=== PATIENT | female | born 1975 | race Hispanic/Latino ===

== ENCOUNTER 2019-11-22 18:26 | Emergency (ER) | payer BC, OTHER ==
--- OUTSIDE RECORDS SUMMARY | 2019-11-22 18:27 | XMS REPORT | Continuity of Care Document ---
:1975 Author Organization [facility] t Address [address] [place] [address] Care Team Providers Name Role Phone Lab, [facility] Fam Pob I Attending Clinician Unavailable Problems This patient has no known problems. Allergies, Adverse Reactions, Alerts This patient has no known allergies or adverse reactions. Medications This patient has no known medications. Procedures This patient has no known procedures. Encounters Start End Encounter Admission Attending Care Care Encounter Source Date/Time Date/Time Type Type Clinicians Facility Department ID 2019-10-28 2019-10-28 Laboratory Lab, [facility] [id number] 14:07:16 14:27:16 Only Fam Pob I [facility] [id number] [place] [id number] Professio [phone] [address]al [address] Results This patient has no known results.
--- OUTSIDE RECORDS SUMMARY | 2019-11-22 18:27 | XMS REPORT | Summary of Care ---
:1975 Author Organization [facility] Address [address] [place] [address] Care Team Providers Name Role Phone Pcp, Patient Does Not Have A Primary Care Provider +1-000-00 0-0000 Reason for Visit Reason Comments LAB Fatigue Headache Encounter Details Date Type Department Care Team Description 10/28/2019 Laboratory Only [facility] Family Camilla Mariscal FNP [address] [address] Suspected Covid-19 [facility] Lab, Adc Fam Pob I Virus Infection [address] [place] [address] (Primary D x) [place] [address] Allergies Not on Filedocumented as of this encounter (statuses as of 10/28/2019) Medications Not on filedocumented as of this encounter (statuses as of 10/28/2019) Active Problems Not on filedocumented as of this encounter (statuses as of 10/28/2019) Social History Tobacco Use Types Packs/Day Years Used Date Never Assessed Sex Assigned at Date Recorded Not on file COVID-19 Exposure Response Date Recorded In the last month, have you been in contact with Yes 10/28/2019 2:13 PM CDT someone who was confirmed or suspected to have Coronavirus / COVID-19? documented as of this encounter Last Filed Vital Signs Not on filedocumented in this encounter Nursing Notes Jennifer Kim MA - 10/28/2019 2:00 PM CDTMaggsebastian Blevins is a 43 year old female here for COVID Screening with a Nasopharyngeal Swab All droplet and contact precautions taken with appropriate PPE worn while interacting with patient. ? Goggles ? N95 Mask ? Gloves ? Gown RR 18 Pulse Ox 98% Patient educated on plan of care for visit, swabbing technique, risks and benefits of test and length of time to receive results. Verbal consent obtained to perform test. CDC Fact Sheet for Patients nCoV Diagnostic Panel dated 05/24/2019 and Factsheet What to Do if Sick with COVID 19 05/04/19 provided. Patient swabbed in bilateral nostrils per appropriate nasopharyngeal technique, and patient tolerated well. Patient was discharged from the testing clinic in stable condition. JENNIFER KIM MA 10/28/2019 2:09 PM documented in this encounter Plan of Treatment Name Type Priority Associated Diagnoses Order S chedule COVID-19 (PCR MOLECULAR LAB Routine Suspected Covid-1 9 Virus Expected: 10/28/2019, TESTING) Infection Expires: 2020 Health Maintenance Due Date Last Done Comments Depression Screening 1985 DTaP,Tdap,and Td Vaccines (1 - 1992 Tdap) PAP SMEAR 1994 Breast Cancer Screening 2013 (MAMMOGRAM) INFLUENZA VACCINE (#1) 2019 Colorectal Cancer Screening 11/12/2023 PNEUMOCOCCAL 0-64 YEARS COMBINED Aged Out No longer eligible based on SERIES patient's age to complete this topic documented as of this encounter Results Not on filedocumented in this encounter Visit Diagnoses Diagnosis Suspected Covid-19 Virus Infection - Sailaja harinder documented in this encounter Additional Health Concerns Infection Onset Date Last Indicated Resolved Time COVID-19 Rule Out 10/28/2019 10/28/2019 documented as of this encounter Insurance Payer Benefit Plan Subscriber ID Effective Dates Phone Address Type / Group BCBS OF [facility] [id number] 2017-Robyn [phone] [address] P[place]/POS [place] t [id number] [place] [address] documented as of this encounter
--- OUTSIDE RECORDS SUMMARY | 2019-11-22 18:27 | XMS REPORT | Summary of Care ---
:1975 Author Organization [facility] Address [address] [place] [address] Care Team Providers Name Role Phone Pcp, Patient Does Not Have A Primary Care Provider +1-000-00 0-0000 Reason for Visit Reason Comments LAB Fatigue Headache Encounter Details Date Type Department Care Team Description 10/28/2019 Laboratory Only [facility] Family Camilla Mariscal FNP [address] [address] Suspected Covid-19 [facility] Lab, Adc Fam Pob I Virus Infection [address] [place] [address] (Primary D x) [place] [address] Allergies Not on Filedocumented as [...] Phone Address Type / Group BCBS OF [facility] [id number] 2017-Robyn [phone] [address] PPO/POS [place] [id number] [place] [address] documented as of this encounter
[2019-11-22 20:25] LABS: Absolute Lymphocytes (CBC) 2.1 K/uL (0.7-4.9); Hematocrit 34.8 % (36.0-45.0); Lymphocytes % 32.9 % (15.3-44.8); MPV 10.7 fL (7.6-11.3); RBC Red Blood Cell Count 3.95 M/uL (3.86-4.86)
[2019-11-22 20:38] LABS: Potassium 3.6 mmol/L (3.5-5.1)
--- NOTE | 2019-11-22 20:40 | ER ---
Nurse's Notes [facility] Name: Marissa Blevins Age: 44 yrs Sex: Female : 1975 Arrival Date: 11/22/2019 Time: 18:32 Bed 19 Private MD: Diagnosis: Irregular menstruation, unspecified;Leiomyoma of uterus, unspecified Presentation: 11/21 18:48 Chief complaint: Bright red vaginal bleeding, flow that is heavy with clots x 2 days. hb Reports leaking through super tampons < 1 hr all day today. Coronavirus screen: At this time, the client does not indicate any symptoms associated with coronavirus-19. Ebola Screen: No symptoms or risks identified at this time. Initial Sepsis Screen: Does the patient meet any 2 criteria? No. Patient's initial sepsis screen is negative. Does the patient have a suspected source of infection? No. Patient's initial sepsis screen is negative. Risk Assessment: Do you want to hurt yourself or someone else? Patient reports no desire to harm self or others. Onset of symptoms was November 21, 2019. 18:48 Method Of Arrival: Ambulatory hb 18:48 Acuity: ABUNDIO 3 hb Triage Assessment: 20:13 General: Appears in no apparent distress. comfortable, Behavior is calm, cooperative. ls4 Pain: Denies pain. Respiratory: No deficits noted. : Reports vaginal bleeding that is moderate flow. Derm: Skin is intact, Skin is dry, Skin is normal, Skin temperature is warm. 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 - Social history:: Smoking status: Patient denies any tobacco usage or history of. Screenin:13 Abuse screen: Denies threats or abuse. Denies injuries from another. Nutritional ls4 screening: No deficits noted. Tuberculosis screening: No symptoms or risk factors identified. Fall Risk None identified. Assessment: 21:15 Reassessment: Patient appears in no apparent distress at this time. Patient and/or ls4 family updated on plan of care and expected duration. Pain level reassessed. Patient is alert, oriented x 3, equal unlabored respirations, skin warm/dry/pink. Vital Signs: 18:48 BP 120 / 82; Pulse 77; Resp 16; Temp 97.7; Pulse Ox 100% on R/A; Weight 72.57 kg; hb Height 4 ft. 11 in. (149.86 cm); Pain 6/10; 21:15 BP 118 / 74; Pulse 72; Resp 16; Pulse Ox 100% on R/A; Pain 0/10; ls4 18:48 Body Mass Index 32.32 (72.57 kg, 149.86 cm) hb ED Course: 18:32 Patient arrived in ED. mr 18:38 Carie Colón FNP-C is [facility]. kb 18:38 Dean Kingston MD is Attending Physician. kb 18:50 Triage completed. hb 18:50 Arm band placed on. hb 19:42 Ultrasound completed. Patient tolerated well. sg3 19:42 Notified YEAST STACKER/PA carie with US prelim. sg3 20:03 Bita Bhardwaj, RN is Primary Nurse. ls4 20:14 No provider procedures requiring assistance completed. Initial lab(s) drawn, by nv, ls4 sent to lab. Inserted saline lock: 20 gauge in right antecubital area, using aseptic technique. Blood collected. Patient maintains SpO2 saturation greater than 95% on room air. 20:32 US Transvaginal Study (Probe) In Process Unspecified. EDAL 20:39 Dangelo Mcfadden MD is Referral Physician. kb 21:16 IV discontinued, intact, bleeding controlled, No redness/swelling at site. Pressure ls4 dressing applied. Administered Medications: No medications were administered Outcome: 20:39 Discharge ordered by . kb 21:16 Discharged to home ambulatory. ls4 21:16 Condition: stable 21:16 Discharge instructions given to patient, family, Instructed on discharge instructions, follow up and referral plans. Demonstrated understanding of instructions, follow-up care. 21:20 Patient left the ED. ls4 Signatures: Dispatcher [employer] EDAL Carie Colón FNP-C FNP-Med Arnie Nadine SawantKeturah RN RN CantuBlanca bowen sg3 Bita Bhardwaj, RN RN ls4 Corrections: (The following items were deleted from the chart) 21:23 21:19 Ultrasound completed. Patient tolerated well. sg3 sg3 21:23 21:19 Notified sg3 sg3
--- NOTE | 2019-11-22 20:40 | EDPHYS ---
Physician Documentation [facility] Name: Marissa Blevins Age: 44 yrs Sex: Female : 1975 Arrival Date: 11/22/2019 Time: 18:32 Bed 19 Private MD: ED Physician Dean Kingston HPI: 11/21 20:20 This 44 yrs old Female presents to ER via Ambulatory with complaints of kb Vaginal Bleeding. 20:20 The patient presents with vaginal bleeding that is heavy. Onset: The symptoms/episode kb began/occurred 2 day(s) ago, and became worse today. Modifying factors: The symptoms are alleviated by nothing, the symptoms are aggravated by nothing. Associated signs and symptoms: Pertinent positives: vaginal bleeding. Severity of symptoms: At their worst the symptoms were moderate, in the emergency department the symptoms are unchanged. The patient has not experienced similar symptoms in the past. The patient has not recently seen a physician. Pt reports she started her period 2 days ago and it has been very heavy, worse today. Pt denies history of heavy periods. States her periods have been very irregular lately and sometimes she has 2 per month. MEDICAL REVIEW SPECIALIST: 18:50 LMP 11/21/2019 hb Historical: - Allergies: 18:50 No Known Allergies; hb - Home Meds: 18:50 None [Active]; hb - PMHx: 18:50 None; hb - PSHx: 18:50 Cholecystectomy; hb - Immunization history:: Adult Immunizations up to date. - Social history:: Smoking status: Patient denies any tobacco usage or history of. ROS: 20:19 Constitutional: Negative for fever, chills, and weight loss, Cardiovascular: Negative kb for chest pain, palpitations, and edema, Respiratory: Negative for shortness of breath, cough, wheezing, and pleuritic chest pain, Abdomen/GI: Negative for abdominal pain, nausea, vomiting, diarrhea, and constipation, Back: Negative for injury and pain, MS/Extremity: Negative for injury and deformity, Skin: Negative for injury, rash, and discoloration, Neuro: Negative for headache, weakness, numbness, tingling, and seizure. 20:19 : Positive for vaginal bleeding. Exam: 20:19 Constitutional: This is a well developed, well nourished patient who is awake, alert, kb and in no acute distress. Head/Face: Normocephalic, atraumatic. Chest/axilla: Normal chest wall appearance and motion. Nontender with no deformity. No lesions are appreciated. Cardiovascular: Regular rate and rhythm with a normal S1 and S2. No gallops, murmurs, or rubs. Normal PMI, no JVD. No pulse deficits. Respiratory: Lungs have equal breath sounds bilaterally, clear to auscultation and percussion. No rales, rhonchi or wheezes noted. No increased work of breathing, no retractions or nasal flaring. Abdomen/GI: Soft, non-tender, with normal bowel sounds. No distension or tympany. No guarding or rebound. No evidence of tenderness throughout. Skin: Warm, dry with normal turgor. Normal color with no rashes, no lesions, and no evidence of cellulitis. MS/ Extremity: Pulses equal, no cyanosis. Neurovascular intact. Full, normal range of motion. Neuro: Awake and alert, GCS 15, oriented to person, place, time, and situation. Cranial nerves II-XII grossly intact. Motor strength 5/5 in all extremities. Sensory grossly intact. Cerebellar exam normal. Normal gait. Vital Signs: 18:48 BP 120 / 82; Pulse 77; Resp 16; Temp 97.7; Pulse Ox 100% on R/A; Weight 72.57 kg; hb Height 4 ft. 11 in. (149.86 cm); Pain 6/10; 21:15 BP 118 / 74; Pulse 72; Resp 16; Pulse Ox 100% on R/A; Pain 0/10; ls4 18:48 Body Mass Index 32.32 (72.57 kg, 149.86 cm) hb MDM: 18:53 Patient medically screened. [facility] 20:19 Data reviewed: vital signs, nurses notes. Data interpreted: Pulse oximetry: on room air kb is 100 %. Interpretation: normal. 20:38 Counseling: I had a detailed discussion with the patient and/or guardian regarding: the kb historical points, exam findings, and any diagnostic results supporting the discharge/admit diagnosis, lab results, radiology results, the need for outpatient follow up, an OB/Gyne specialist, to return to the emergency department if symptoms worsen or persist or if there are any questions or concerns that arise at home. 11/21 18:54 Order name: CBC with Diff; Complete Time: 20:37 kb 11/21 18:54 Order name: Basic Metabolic Panel; Complete Time: 20:38 kb 11/21 18:54 Order name: IV Start; Complete Time: 20:13 kb 11/21 18:59 Order name: US Transvaginal Study (Probe); Complete Time: 20:45 kb Administered Medications: No medications were administered Disposition: 11/22 10:56 Co-signature as Attending Physician, Dean Kingston MD I agree with the assessment and caridad plan of care. Disposition: 11/22/19 20:39 Discharged to Home. Impression: Irregular menstruation, unspecified, Leiomyoma of uterus, unspecified. - Condition is Stable. - Discharge Instructions: Uterine Fibroids, [id number], Abnormal Uterine Bleeding, [id number]. - Medication Reconciliation Form, Thank You Letter, Antibiotic Education, Prescription Opioid Use form. - Follow up: Emergency Department; When: As needed; Reason: Worsening of condition. Follow up: Private Physician; When: 2 - 3 days; Reason: Recheck today's complaints, Continuance of care, Re-evaluation by your physician. Follow up: Dangelo Mcfadden MD; Reason: Recheck today's complaints. Signatures: Dispatcher [employer] EDMS Carie Colón, LOG SKIDDER-C LOG SKIDDER-Dean Magaña MD MD cha Baxter, Heather, RN RN Bita Tsai RN RN ls4 Corrections: (The following items were deleted from the chart) 11/21 20:39 20:39 11/22/2019 20:39 Discharged to Home. Impression: Irregular menstruation, kb unspecified; Leiomyoma of uterus, unspecified. Condition is Stable. Forms are Medication Reconciliation Form, Thank You Letter, Antibiotic Education, Prescription Opioid Use. Follow up: Emergency Department; When: As needed; Reason: Worsening of condition. Follow up: Private Physician; When: 2 - 3 days; Reason: Recheck today's complaints, Continuance of care, Re-evaluation by your physician. kb 21:20 20:39 11/22/2019 20:39 Discharged to Home. Impression: Irregular menstruation, ls4 unspecified; Leiomyoma of uterus, unspecified. Condition is Stable. Discharge Instructions: Uterine Fibroids, [id number], Abnormal Uterine Bleeding, [id number]. Forms are Medication Reconciliation Form, Thank You Letter, Antibiotic Education, Prescription Opioid Use. Follow up: Emergency Department; When: As needed; Reason: Worsening of condition. Follow up: Private Physician; When: 2 - 3 days; Reason: Recheck today's complaints, Continuance of care, Re-evaluation by your physician. Follow up: Dangelo Mcfadden; Reason: Recheck today's complaints. kb
--- NOTE | 2019-11-22 20:42 | RAD REPORT ---
EXAM DESCRIPTION: US - Transvaginal Study Probe - 11/22/2019 8:32 pm CLINICAL HISTORY: heavy;Vaginal bleeding Pelvic pain. COMPARISON: No comparisons FINDINGS: The uterus appears mildly enlarged measuring 8.4 x 5.9 x 4.8 cm. In the fundal region ther e are 2 prominent fibroids which appear submucosal location, the larger fibroid measuring 3.0 x 2.4 c m. The endometrial stripe measures 6 mm, normal. Both ovaries are normal in size, shape and echotexture. The right ovary measures 2.5 x 2.1 cm. The left ovary measures 3.5 x 2.1 cm. No ovarian or parovarian lesions. No adnexal masses. Normal Doppler blood flow was demonstrated to both ovaries. No significant pelvic ascites. IMPRESSION: Several uterine fibroids are present in the fundal region, submucosal location as detail ed.
[2019-11-22 23:10] VITALS: TEMP 97.7; O2SAT 100
[2019-11-22 23:11] VITALS: BP 118/74
== END 2019-11-22 21:20 | disposition home or self-care (01) ==
LOC: ER 18:26
DX: N92.6 Irregular menstruation, unspecified (principal); D25.9 Leiomyoma of uterus, unspecified
CPT/HCPCS: 36415; 76830; 80048; 85025; 99284

== ENCOUNTER 2020-07-04 16:14 | Emergency (ER) | payer BC ==
--- OUTSIDE RECORDS SUMMARY | 2020-07-04 16:19 | XMS REPORT | Continuity of Care Document ---
:1975 Author Organization [facility] t Address [address] [place] [address] Care Team Providers Name Role Phone Lab, [facility] Fam Pob I Attending Clinician Unavailable Sonia RN, L Attending Clinician Unavailable Payers Payer Name Policy Type Policy Number Effective Date Expiration Date S ource Problems This patient has no known problems. Allergies, Adverse Reactions, Alerts Allergy Allergy Status Severity Reaction(s) Onset Inactive Treating Comm ents Source Name Type Date Date Clinician No Known DA Active U 2019-03 [facility]ie 0-26 Pearlan s 00:00: d 00 [facility] Medications This patient has no known medications. Procedures This patient has no known procedures. Encounters Start End Encounter Admission Attending Care Care Encounter Source Date/Time Date/Time Type Type Clinicians Facility Department ID 2020-03-06 2020-03-06 Laboratory Lab, [facility] [id number] 11:10:50 11:30:50 Only [facility]am [facility] [id number] Bryan [id number] Connor [phone] nal [address] 2019-10-29 2019-10-29 Letter DESTINEE Scott [id number] 00:00:00 00:00:00 (Out) Marni MILES [id number] [facility] [id number] [id number] 2019-10-28 2019-10-28 Laboratory Lab, [facility] [id number] 14:07:16 14:27:16 Only [facility] [id number] Bryan [id number] Connor [phone] nal 0[address] One Results Test Description Test Time Test Comments Results Result Comments Source SURG 2020-01-11 15:47:00 Test Item Value Reference Range Interpretation Comme nts SURG RUN DATE: (test 01/11/20 H FLA[facility]IO [facility] PAGE 1 RUN TIME: 154 code = Specimen Inquiry RUN USER: INTERFACE SURG) PATIENT: JULIET NGUYEN LOC: [place] U #: [id number] AGE/SX: 44/ F ROOM: RE01/07/20REG DR: Kathi Rodriguez : 71 BED: DIS: STATUS: [facility] TLOC: SPEC #: [id number] RECD: STATUS: BULMARO PURVIS #: [id number] RAMILA: 01/07/[address]: Kathi Rodriguez MD ENTERED: 01/07/20 SP TYPE: SURG OTHR DR: Arcelia P rimary or Family PhysicianORDERED: SURG PATH LVL 5 COPIES TO: No Primary or Family Physician Kathi Rodriguez MD [address] [place] [address] HISTOLOGY: TISSUE ID BLK PCS LATHA LEV PROCEDURE DISPOSITION ____ ___ ___ ___ UTERUS, NOS A 1 1 PROCEDURES: SURG PATH LVL 5 (01/07/20) TISSUES: A. UTERUS, NOS - UTERUS, CERVIX AND BILATERAL TUBES CLIN ICAL HISTORY DYSMENORRHEA - N94.6; LEIOMYOMA - D25.9; FREQUENT MENSES - N92.1 CPT CODES CPT CODE(S): 15813 , , , , , , FINAL D IAGNOSIS Uterus, cervix and bilateral fallopian tubes, hysterectomy and bilateral salpingectomy: CHRONIC CERVICITIS WITH NABOTHIAN CYST ADENOMYOSIS LEIOMYOMAS AND ADENOMYOMAS BILATERAL FALL OPIAN TUBES WITH PARATUBAL CYSTS GROSS DESCRIPTION Uterus, cervix and bilateral fallopian tube s. Received in formalin is a 175.9-gram hysterectomy and bilateral salpingectomy specimen inclu ding a uterus with attached cervix (10.5 x 7.5 x 5.5 cm), left fallopian tube with fimbriated end ( 6.5 x 1.0 x 0.5 cm), and right fallopian tube with fimbriated end (5.5 x CONTINUED ON NEXT PAGE * * RUN DATE: 01/11/20 H FLAVIO [facility] [place] - LAB PAGE 2 RUN TIME: 1546 Specimen Inquiry RUN USER: INTERFACE SPEC #: [facility]:[id number] PATIENT: JULIET NGUYEN #[id number] (Continued) GROSS DESCRIPTION (Continued) 1.0 x 0.5 cm). The serosal surface is beyer-brown, smooth and glistening. The cervix measures 3.6 x 3.3 x 4.0 cm (depth) with a linear os, 1.2 cm. The cervix contains cysts fill ed with translucent viscous fluid, the largest measures 0.7 cm in greatest dimension. The endometrial c avity measures 2.5 cm from cornu to cornu x 4.5 cm in length with a hemorrhagic endometrium, 0.3 cm. The myometrium is maximally 3.0 cm in thickness, and contains nodular areas. The le ft fallopian tube is slightly tortuous, is serially sectioned and has a patent lumen and is grossly unremarkable. There is a metallic coil embedded in the proximal end of the tube. The right fallopian tube is slightly tortuous, is serially sectioned and has a patent lumen and is grossly unremarkable except for two thin-walled paratubal cysts, 0.3 and 0.6 cm filled with translucent non- viscous fluid. There is a metallic coil embedded in the proximal end of the tube. ba/nr Repre sentative sections submitted as follows: A1 Anterior cervix A2 Posterior cervix A3-A4 Anterior endometrium/myometrium A5-A6 Posterior endometrium/myometrium A7- A9 Additional sections of myometrium A10 Serosa (posterior cul-de-sac) A 11 Entire fimbria - left fallopian tube A12 Cross-sections of left fallo pian tube A13 Entire fimbria - right fallopian tube and paratubal cyst A14 Cross-sec tions of right fallopian tube and paratubal cyst Grossing performed at [facility], [address] [place] [address], [address], [place] [address]. Trailer Technician: Lion Hurley M.D. MICROSCOP IC DESCRIPTION Uterus, cervix and bilateral fallopian tubes. Sections demonstrate squamous ectoc ervix and glandular endocervix with mild chronic cervicitis and nabothian cysts. Endometrium demonstr ates secretory phase endometrium. The myometrium demonstrates areas of endometrial glands and bro a involving the smooth muscle. The myometrium demonstrates spindle cell nodules and occasional nodul es with endometrial glands and stroma. No malignant features are seen. The serosal surface demons trates no evidence of involvement by endometrial glands and stroma. Sections of the fallopian tu bes demonstrate fimbriated end and associated fallopian tube. Occasional paratubal cysts are identified. Signed SIGNATURE ON FILE Otis Caro 01/11/20 1547 END OF REPORT - CHEST 1 [id number] 13:47:00 [facility] 1975 Sex: F Name: JULIET NGUYEN [facility] : 1975 Age/S: 44 / F [address] Unit #: [id number] Loc: [place] [address] Phys: Kathi Rodriguez MD Acct: [id number] Dis Date: Status: PRE SDC PHONE #: [phone] Exam Date: 01/04/2020 1202 FAX #: Reason: PREOP EXAMS: CPT: [id number] XR CHEST 1 V 20507 Fluoro Time: DAP (Gy m2): Air Kerma (mGy): EXAMINATION: - XR CHEST 1 V. LOCATION: S17. HISTORY: PREOP, dysmenorrhea, leiomyoma, frequent menstruation. COMPARISON: None. FINDINGS: Examination is limited due to portable technique and low lung volumes. Cardiac silhouette/Mediastinal contour: Within normal limits. Lungs: No focal consolidation. No large pleural effusion. Osseous Structures: No acute osseous abnormalities. Additional Findings: Postoperative clips project over right upper abdomen. IMPRESSION: No focal consolidation. at 1347 Reported and signed by: Mariaelena Wharton M.D. CC: Kathi Rodriguez MD PAGE 1 Signed Report Name: JULIET NGUYEN [facility] : 1975 Age/S: 44 / F [id number] Unit #: [id number] Loc: [place] [address] Phys: Kathi Rodriguez MD Acct: [id number] Dis Date: Status: P RE [facility] PHONE #: [phone] Exam Date: 01/04/2020 120 FAX #: Reason: PREOP EXAMS: CPT: [id number] XR CHEST 1 V 69299 Fluoro Time: DAP (Gy m2): Air Kerma (mGy): <Continued> Technologist: Regina Jaramillo, RT(R)(MR) Trnscb Date/Time: 01/04/2020 (2959) [email or web address] Orig Print D/T: S: 01/04/2020 (7160) PAGE 2 Signed ReportCOVID 19 INHOUSE [id number] 13:02:00 Test Item Value Reference Range Interpretation Comments COVID 19 INHOUSE AG NEGATIVE Negative Per manu facturer, (test code = negative result s should [id number]) be treated aspr esumptive and, if inconsi stent with clinical signs andsymptoms or necessary for patient man agement, should betested with an alternative mol ecular assay. Negative resultsdo not preclude SA RS-CoV-2 infection and s hould not be usedas the s ole basis for patient man agement decisions. Neg ative results should be considered in t he context of apatient's r ecent exposures, hist ory, presence of cli nicalsigns and symptoms co nsistent with COVID-19. URINALYSIS [id number] 12:15:00 Test Item Value Reference Range Interpretation Comments UA GLUCOSE DIPSTICK (test NEGATIVE mg/dL NEG code = DGLUU) UA BILIRUBIN DIPSTICK (test NEGATIVE mg/dL NEG code = BILU) UA KETONE DIPSTICK (test NEGATIVE mg/dL NEG code = KETU) UA SPECIFIC GRAVITY (test 1.010 SG 1.005-1.030 code = SGU) UA BLOOD DIPSTICK (test NEGATIVE mg/DL NEG code = SAPPHIRE) UA PH DIPSTICK (test code = <=5.0 pH UNITS 5.0-7.0 ABELARDO) UA PROTEIN DIPSTICK (test NEGATIVE mg/dL NEG code = PROU) UA UROBILINIOGEN DIPSTICK 0.2 mg/dL <2.0 (test code = URO) UA NITRITE DIPSTICK (test NEGATIVE SCREEN NEG code = DAYA) UA LEUKOCYTE ESTERASE NEGATIVE Leuk/mcL NEGATIVE DIPSTICK (test code = LEUU) Urine Specimen Type: Clean CatchUR HCG [id number] 12:15:00 Test Item Value Reference Range Interpretation Comments UR HCG QUAL (test code = HCGQLU) NEGATIVE Urine Specimen Type: Clean CatchURINALYSIS [id number] 12:15:00 Test Item Value Reference Range Interpretation Comments UA GLUCOSE DIPSTICK (test NEGATIVE mg/dL NEG code = DGLUU) UA BILIRUBIN DIPSTICK (test NEGATIVE mg/dL NEG code = BILU) UA KETONE DIPSTICK (test NEGATIVE mg/dL NEG code = KETU) UA SPECIFIC GRAVITY (test 1.010 SG 1.005-1.030 code = SGU) UA BLOOD DIPSTICK (test NEGATIVE mg/DL NEG code = SAPPHIRE) UA PH DIPSTICK (test code = <=5.0 pH UNITS 5.0-7.0 ABELARDO) UA PROTEIN DIPSTICK (test NEGATIVE mg/dL NEG code = PROU) UA UROBILINIOGEN DIPSTICK 0.2 mg/dL <2.0 (test code = URO) UA NITRITE DIPSTICK (test NEGATIVE SCREEN NEG code = DAYA) UA LEUKOCYTE ESTERASE NEGATIVE Leuk/mcL NEGATIVE DIPSTICK (test code = LEUU) Urine Specimen Type: Clean CatchUR HCG [id number] 12:15:00 Test Item Value Reference Range Interpretation Comments UR HCG QUAL (test code = HCGQLU) NEGATIVE NEGATIVE Urine Specimen Type: Clean CatchCBC W/AUTO [id number] 12:11:00 Test Item Value Reference Range Interpretation Comments WHITE BLOOD CELL (test code = 6.9 K/mm3 3.5-11.0 N WBC) RED BLOOD CELL (test code = 4.37 M/mm3 4.70-6.10 L RBC) HEMOGLOBIN (test code = HGB) 12.5 G/DL 10.4-14.9 N HEMATOCRIT (test code = HCT) 39.2 % 31.5-44.1 N MEAN CELL VOLUME (test code = 89.7 Fl 84.5-98.6 N MCV) MEAN CELL HGB (test code = MCH) 28.6 pg 27.0-34.2 N MEAN CELL HGB CONCETRATION 31.9 G/DL 31.5-34.0 N (test code = MCHC) RED CELL DISTRIBUTION WIDTH 13.9 SD 11.5-14.5 N (test code = RDW) PLATELET COUNT (test code = 274 K/mm3 150-450 N PLT) MEAN PLATELET VOLUME (test code 11.50 fL 7.0-10.5 H = MPV) NEUTROPHIL % (test code = NT%) 65.7 % 40-76 N IMMATURE GRANULOCYTE % (test 0.3 % 0.0-5.0 N code = IG%) LYMPHOCYTE % (test code = LY%) 25.5 % 20.5-51.1 N MONOCYTE % (test code = MO%) 6.1 % 1.7-9.3 N EOSINOPHIL % (test code = EO%) 1.7 % 0.0-6.0 N BASOPHIL % (test code = BA%) 0.7 % 0.0-2.0 N NUCLEATED RBC % (test code = 0.0 /100WBC% 0.0-1.0 N NRBC%) NEUTROPHIL # (test code = NT#) 4.5 K/mm3 1.8-7.6 N IMMATURE GRANULOCYTE # (test 0.02 x10 3/uL 0.00-0.03 N code = IG#) LYMPHOCYTE # (test code = LY#) 1.8 K/mm3 0.6-3.2 N MONOCYTE # (test code = MO#) 0.4 K/mm3 0.3-1.1 N EOSINOPHIL # (test code = EO#) 0.1 K/mm3 0.0-0.4 N BASOPHIL # (test code = BA#) 0.1 K/mm3 0.0-0.1 N NUCLEATED RBC # (test code = 0.0 K/mm3 0.0-0.1 N NRBC#) MANUAL DIFF REQUIRED (test code NO DIFF/SCN CRITERIA = MDIFF)
--- NOTE | 2020-07-04 20:05 | ER ---
Nurse's Notes [facility] Name: Marissa Blevins Age: 44 yrs Sex: Female : 1975 Arrival Date: 07/04/2020 Time: 16:15 Bed 3 Private MD: Diagnosis: Headache;Coronavirus infection, unspecified Presentation: 07/04 16:35 Chief complaint: Patient states: Headache with nausea since Saturday. Tested positive ll1 for covid Saturday. Both of her daughters also have covid. Coronavirus screen: Client denies travel out of the [place] in the last 14 days. chills, congestion, diarrhea, difficulty breathing, fatigue, headache, muscle pain, nausea, shaking with chills, shortness of breath, loss of taste or smell, Client presents with at least one sign or symptom that may indicate coronavirus-19. Standard/surgical mask placed on the client. Ebola Screen: Patient denies travel to an Ebola-affected area in the 21 days before illness onset. Initial Sepsis Screen: Does the patient meet any 2 criteria? No. Patient's initial sepsis screen is negative. Does the patient have a suspected source of infection? Yes: Other: covid. Risk Assessment: Do you want to hurt yourself or someone else? Patient reports no desire to harm self or others. Onset of symptoms was June 28, 2020. 16:35 Method Of Arrival: Ambulatory ll1 16:35 Acuity: ABUNDIO 3 ll1 Historical: - Allergies: 16:38 No Known Allergies; ll1 - PMHx: 16:38 None; ll1 - PSHx: 16:38 Cholecystectomy; Hysterectomy; ll1 - Immunization history:: Client reports having NOT received the Covid vaccine. Flu vaccine is up to date. - Social history:: Smoking status: Patient denies any tobacco usage or history of. - Family history:: not pertinent. - Hospitalizations: : No recent hospitalization is reported. Screenin:03 Abuse screen: Denies threats or abuse. Nutritional screening: No deficits noted. ea Tuberculosis screening: No symptoms or risk factors identified. Fall Risk None identified. Assessment: 20:01 General: Appears in no apparent distress. Behavior is calm, cooperative, appropriate ea for age. Pain: Denies pain. Neuro: Level of Consciousness is awake, alert, obeys commands, Oriented to person, place, time, situation. Cardiovascular: Patient's skin is warm and dry. Respiratory: Airway is patent Respiratory effort is even, unlabored, Respiratory pattern is regular, symmetrical. Derm: Skin is pink, warm \T\ dry. 20:24 Reassessment: Patient and/or family updated on plan of care and expected duration. Pain ea level reassessed. Patient is alert, oriented x 3, equal unlabored respirations, skin warm/dry/pink. Discharge instruction given to patient verbalized the understanding of instruction. Pt left ED ambulatory tolerating well. Vital Signs: 16:35 BP 125 / 96; Pulse 84; Resp 17; Temp 98.7; Pulse Ox 98% on R/A; Weight 67.59 kg; Height ll1 4 ft. 11 in. (149.86 cm); Pain 8/10; 20:15 BP 120 / 80; Pulse 80; Resp 18; Pulse Ox 98% ; ea 16:35 Body Mass Index 30.09 (67.59 kg, 149.86 cm) ll1 [place] Coma Score: 20:03 Eye Response: spontaneous(4). Verbal Response: oriented(5). Motor Response: obeys rn commands(6). Total: 15. ED Course: 16:15 Patient arrived in ED. am2 16:37 Triage completed. ll1 16:38 Arm band placed on. ll1 19:44 Samir Shi, SILVIA is Primary Nurse. rv 19:44 Kit Anderson MD is Attending Physician. rn 20:03 Patient has correct armband on for positive identification. Bed in low position. Call ea light in reach. Side rails up X2. 20:25 No provider procedures requiring assistance completed. Patient did not have IV access ea during this emergency room visit. Administered Medications: 20:01 Drug: Zofran (Ondansetron) 4 mg Route: PO; ea Outcome: 20:05 Discharge ordered by . rn 20:25 Discharged to home ambulatory, with family. ea 20:25 Condition: stable 20:25 Discharge instructions given to patient, Instructed on discharge instructions, follow up and referral plans. medication usage, Demonstrated understanding of instructions, follow-up care, medications, Prescriptions given X 1. 20:26 Patient left the ED. ea Signatures: Kit Anderson MD MD rn Moreno, Amanda am2 Elaine Thorne RN RN Samir Ortiz, RN RN rv Donavon, Lul, RN RN ll1
--- NOTE | 2020-07-04 20:05 | EDPHYS ---
Physician Documentation [facility] Name: Marissa Blevins Age: 44 yrs Sex: Female : 1975 Arrival Date: 07/04/2020 Time: 16:15 Bed 3 Private MD: ED Physician Kit Anderson HPI: 07/04 19:53 This 44 yrs old Female presents to ER via Ambulatory with complaints of rn Headache. 19:53 The patient complains of pain to the top of head. The patient describes the headache as rn aching. Onset: The symptoms/episode began/occurred 6 day(s) ago. Associated signs and symptoms: Pertinent positives: nausea, Pertinent negatives: altered mental status, dizziness, fever, rash, vision changes, vision loss, vomiting, vertigo. Severity of symptoms: At its worst the pain was mild, in the emergency department the pain is unchanged. Headache History: Denies prior headaches. The symptoms are alleviated by nothing. the symptoms are aggravated by nothing. The patient has not experienced similar symptoms in the past. The patient has been recently seen by a physician:. Reports started with headache 6 days ago, COVID +, no respiratory issues, + decreased appetite and generalized weakness. Reports 3 other family members with COVID, 1 is here as patient, this patient came because headache continues. NO focal neuro complaint. Was not vaccinated. . Historical: - Allergies: 16:38 No Known Allergies; ll1 - PMHx: 16:38 None; ll1 - PSHx: 16:38 Cholecystectomy; Hysterectomy; ll1 - Immunization history:: Client reports having NOT received the Covid vaccine. Flu vaccine is up to date. - Social history:: Smoking status: Patient denies any tobacco usage or history of. - Family history:: not pertinent. - Hospitalizations: : No recent hospitalization is reported. ROS: 19:53 Constitutional: Negative for fever, chills, + weight loss Eyes: Negative for injury, rn pain, redness, and discharge, ENT: Negative for injury, pain, and discharge, Neck: Negative for injury, pain, and swelling, Cardiovascular: Negative for chest pain, palpitations, and edema, Respiratory: Negative for shortness of breath, cough, wheezing, and pleuritic chest pain, Abdomen/GI: Negative for abdominal pain, vomiting, diarrhea, and constipation, Back: Negative for injury and pain, : Negative for injury, bleeding, discharge, and swelling, MS/Extremity: Negative for injury and deformity, Skin: Negative for injury, rash, and discoloration, Neuro: Negative for numbness, tingling, and seizure. Exam: 19:53 Constitutional: This is a well developed, well nourished patient who is awake, alert, rn and in no acute distress. Ambulatory to room without assistance. Head/Face: Normocephalic, atraumatic. Eyes: Pupils equal round and reactive to light, extra-ocular motions intact. Lids and lashes normal. Conjunctiva and sclera are non-icteric and not injected. Cornea within normal limits. Periorbital areas with no swelling, redness, or edema. Neck: Trachea midline, no masses palpated, and no cervical lymphadenopathy. Supple, full range of motion without nuchal rigidity, or vertebral point tenderness. No Meningismus. Cardiovascular: Regular rate and rhythm. No pulse deficits. Respiratory: Speaking full sentences. No increased work of breathing, no retractions or nasal flaring. Skin: Warm, dry MS/ Extremity: Pulses equal, no cyanosis. Neurovascular intact. Full, normal range of motion. Equal circumference. Neuro: Awake and alert, GCS 15, oriented to person, place, time, and situation. Cranial nerves II-XII grossly intact. Motor strength 5/5 in all extremities. Sensory grossly intact. Cerebellar exam normal. Normal gait. Vital Signs: 16:35 BP 125 / 96; Pulse 84; Resp 17; Temp 98.7; Pulse Ox 98% on R/A; Weight 67.59 kg; Height ll1 4 ft. 11 in. (149.86 cm); Pain 8/10; 20:15 BP 120 / 80; Pulse 80; Resp 18; Pulse Ox 98% ; ea 16:35 Body Mass Index 30.09 (67.59 kg, 149.86 cm) ll1 [place] Coma Score: 20:03 Eye Response: spontaneous(4). Verbal Response: oriented(5). Motor Response: obeys rn commands(6). Total: 15. MDM: 19:44 Patient medically screened. rn 20:03 Differential diagnosis: migraine, tension headache, vasomotor headache. Data reviewed: rn vital signs, nurses notes, and as a result, I will discharge patient. Counseling: I had a detailed discussion with the patient and/or guardian regarding: the historical points, exam findings, and any diagnostic results supporting the discharge/admit diagnosis, the need for outpatient follow up, to return to the emergency department if symptoms worsen or persist or if there are any questions or concerns that arise at home. Special discussion: I discussed with the patient/guardian in detail that at this point there is no indication for admission to the hospital. It is understood, however, that if the symptoms persist or worsen the patient needs to return immediately for re-evaluation. ED course: Pt COVID + with constitutional symptoms, stable vitals, normal neuro exam, no indication for emergent imaging. Will dc home with prn zofran and return precautions. . Administered Medications: 20:01 Drug: Zofran (Ondansetron) 4 mg Route: PO; ea Disposition: 07/04/20 20:05 Discharged to Home. Impression: Headache, Coronavirus infection, unspecified. - Condition is Stable. - Discharge Instructions: Viral Respiratory Infection, Miuj-Sw-Ivsg, COVID-19. - Prescriptions for Zofran ODT 4 mg Oral tablet,disintegrating - place 1 tablet by TRANSLINGUAL route every 8 hours As needed; 20 tablet. - Medication Reconciliation Form, Thank You Letter, Antibiotic Education, Prescription Opioid Use form. - Follow up: Private Physician; When: As needed; Reason: Recheck today's complaints, Re-evaluation by your physician. - Problem is new. - Symptoms have improved. Signatures: Kit Anderson MD MD rn Antunez, Elena, RN RN ea Lewis, Lynsay, RN RN ll1 Corrections: (The following items were deleted from the chart) 20:26 20:05 07/04/2020 20:05 Discharged to Home. Impression: Headache; Coronavirus infection, ea unspecified. Condition is Stable. Forms are Medication Reconciliation Form, Thank You Letter, Antibiotic Education, Prescription Opioid Use. Follow up: Private Physician; When: As needed; Reason: Recheck today's complaints, Re-evaluation by your physician. Problem is new. Symptoms have improved. rn
[2020-07-04 20:49] VITALS: TEMP 98.7; O2SAT 98
[2020-07-04 20:51] VITALS: BP 120/80
== END 2020-07-04 20:26 | disposition home or self-care (01) ==
LOC: ER 16:14
DX: U07.1 COVID-19 (principal)
CPT/HCPCS: 99283

== ENCOUNTER 2021-06-13 10:40 | Emergency (ER) | payer BC ==
--- OUTSIDE RECORDS SUMMARY | 2021-06-13 10:44 | XMS REPORT | Continuity of Care Document ---
:1975 Author Organization [facility] t Address [address] [place] [address] Care Team Providers Name Role Phone PCP, DOES NOT HAVE A Primary Care Physician Unavailable Vern Rodriguez Attending Clinician Unavailable PABLITO Attending Clinician Unavailable Pablito MAINTENANCE SHOP CLERK Attending Clinician Doctor Unassigned, Name Attending Clinician Unavailable Piero Mahoney DO Attending Clinician ANGELA Attending Clinician Unavailable Lab, Fam Pob I Attending Clinician Unavailable Angela MAINTENANCE SHOP CLERK Attending Clinician Sonia RN, L Attending Clinician Unavailable Loida MAINTENANCE SHOP CLERK Attending Clinician Payers Payer Name Policy Type Policy Number Effective Date Expiration Date S sonia [facility] [id number] 2017 00:00:00 Problems Condition Condition Condition Status Onset Resolution Last Treating Co mments Source Name Details Category Date Date Treatment Clinician Date No known No known Disease Unive rs active active ity of problems problems [facility] Allergies, Adverse Reactions, Alerts Allergy Allergy Status Severity Reaction(s) Onset Inactive Treating Comm ents Source Name Type Date Date Clinician No Known DA Active U 2019-03 [facility] 0- [facility] 00:00: d 00 [facility] No Known DA Active U 2019-03 [facility]ie 0-26 [facility] NO KNOWN Drug Active Univers ALLERGIE Class ity of S [facility] Social History Social Habit Start Date Stop Date Quantity Comments Source Exposure to Yes [facility] SARS-CoV-2 (event) Medica l Branch Sex Assigned At [birth year] [facility] 00:00:00 00:00:00 Medical Branch Smoking Status Start Date Stop Date Source Unknown if ever smoked [facility] Medications Ordered Filled Start Stop Current Ordering Indication Dosage Frequency Signature Comments Components Source Medication Medication Date Date Medication? Clinician (SIG) Name Name ondansetron No 4mg 4 mg, Univ ers (ZOFRAN-ODT -16 03-26 Oral, ity of ) 01:00: 00:07 ONCE, 1 [place] disintegrat 00 :00 dose, On Medi michelle ing tablet Sat Branch 4 mg 03/25/21 at 1900, SAMIR benzonatate Yes [id number] 100mg Take 1 Univers 100 mg 1-15 capsule by ity of capsule 00:00: mouth 3 [place] 00 (three) Medical times Branch daily as needed for Cough. ondansetron Yes [id number] 4mg Take 1 Univers (ZOFRAN 1-15 tablet by ity of ODT) 4 mg 00:00: mouth [place] disintegrat 00 every 8 Medic al ing tablet (eight) Branch hours as needed for Nausea and Vomiting (N/V). ondansetron 2020-03 No 4mg 4 mg, Slow Univers (ZOFRAN 0-03 10-03 IV Push, ity of (PF)) 23:15: 22:15 ONCE, 1 [place] injection 4 00 :00 dose, On Medi michelle mg Sun Branch 12/11/20 at 1815, SAMIR NaCl 0.9% 2020-03 No 1000mL at 999 Uni vers (NS) bolus 0-03 10-03 mL/hr, ity of infusion 23:15: 23:52 1,000 mL, Nikc as 1,000 mL 00 :00 IV Medical Piggyback, Branch ONCE, 1 dose, On 12/11/20 at 1815, STAT ondansetron 2020-03 Yes [id number] 4mg Take 1 Univers (ZOFRAN 0-03 tablet by ity of ODT) 4 mg 00:00: mouth [place] disintegrat 00 every 8 Medic al ing tablet (eight) Branch hours as needed for Nausea and Vomiting (N/V). ondansetron 2020-03 Yes [id number] 4mg Take 1 Univers (ZOFRAN 0-03 tablet by ity of ODT) 4 mg 00:00: mouth [place] disintegrat 00 every 8 Medic al ing tablet (eight) Branch hours as needed for Nausea and Vomiting (N/V). ondansetron 2020-03 Yes [id number] 4mg Take 1 Univers (ZOFRAN 0-03 tablet by ity of ODT) 4 mg 00:00: mouth [place] disintegrat 00 every 8 Medic al ing tablet (eight) Branch hours as needed for Nausea and Vomiting (N/V). Vital Signs Vital Name Observation Time Observation Value Comments Source Respiratory rate 2021-03-25 23:53:00 18 /min [facility] Body height 2021-03-25 23:53:00 149.9 cm [facility] Body weight 2021-03-25 23:53:00 63.504 kg [facility] BMI 2021-03-25 23:53:00 28.28 kg/m2 [facility] Oxygen saturation in 2021-03-25 23:53:00 98 /min [facility] Arterial blood by [facility] Pulse oximetry Branch Systolic blood 2021-03-25 23:53:00 123 mm[Hg] Univer sity of [facility] Diastolic blood 2021-03-25 23:53:00 69 mm[Hg] [facility] 2021-03-25 23:53:00 113 /min [facility] Body temperature 2021-03-25 23:53:00 37.44 Tanisha [facility] Systolic blood 2020-12-11 23:00:00 114 mm[Hg] Univer sity of [facility] Diastolic blood 2020-12-11 23:00:00 78 mm[Hg] [facility] Heart rate 2020-12-11 23:00:00 79 /min [facility] Respiratory rate 2020-12-11 23:00:00 18 /min [facility] Oxygen saturation in 2020-12-11 23:00:00 98 /min [facility] Arterial blood by [facility] Pulse oximetry Branch Body temperature 2020-12-11 22:07:00 36.78 Tanisha [facility] Body height 2020-12-11 22:07:00 149.9 cm [facility] Body weight 2020-12-11 22:07:00 63.504 kg [facility] BMI 2020-12-11 22:07:00 28.28 kg/m2 [facility] Procedures Procedure Date / Time Performed Performing Clinician Sourc e CONSENT/REFUSAL FOR 2021-03-25 23:41:06 Doctor Unassigned, No [facility] [place] [facility] AND Name [facility] TREATMENT LIPASE 2020-12-11 22:14:00 Destinee Mahoney [facility] COMP. METABOLIC PANEL 2020-12-11 22:14:00 Destinee Mahoney [facility] ([id number]) [facility] CBC WITH DIFF 2020-12-11 22:14:00 Destinee Mahoney [facility] NOTICE OF PRIVACY 2020-12-11 22:02:31 Doctor Unassigned, No [facility] PRACTICES Name [facility] CONSENT/REFUSAL FOR 2020-12-11 22:02:15 Doctor Unassigned, No [facility] [place] DIAGNOSIS AND Name [facility] TREATMENT Encounters Start End Encounter Admission Attending Care Care Encounter Source Date/Time Date/Time Type Type Clinicians Facility Department ID 2021-01-10 Emergency [facility] [id number] Univers 03:25:56 ity [facility] 2020-01-07 Inpatient Kadiyala, HCAPM SYDNI [id number] [facility] 11:00:00 Kathi [id number] [facility] 2020-01-04 Inpatient Kadiyala, HCAPM SYDNI [id number] [facility] 11:00:00 Kathi [id number] [facility] 2021-03-25 2021-03-25 Emergency X PABLITO, [facility] ERT [id number] Univers 17:55:00 18:48:00 KAMERON ity [facility] 2021-03-25 2021-03-25 Emergency Zhang, [facility] 1.2.840.114 [id number] Univers 17:55:00 18:48:00 Kameron MABLE 350.1.13.10 i ty of [place] 4.2.7.2.686 [facility] [phone] [address] 2021-03-25 2021-03-25 Orders Doctor DESTINEE 1.2.840.114 [id number] Univers 00:00:00 00:00:00 Only Unassigned, JD 350.1.13.10 ity of [facility] 4.2.7.2.686 Nick as [phone] [address] 2020-12-11 2020-12-11 [facility] 1.2.840.114 [id number] Univers 17:06:00 18:58:00 Destinee Harry Mable 350.1.13.10 ity of [place] 4.2.7.2.686 [facility] [id number] [address] 2020-12-11 2020-12-11 Orders Doctor DESTINEE 1.2.840.114 [id number] Univers 00:00:00 00:00:00 Only Unassigned, JD 350.1.13.10 ity of [facility] 4.2.7.2.686 Nick as [phone] [address] 2020-03-06 2020-03-06 Outpatient R [facility] [id number] Univers 15:20:00 15:20:00 [id number] ity [facility] 2020-03-06 2020-03-06 [facility] [id number] Univers 15:20:00 15:20:00 LUCIANA ity [facility] 2020-03-06 2020-03-06 Laboratory Lab, [facility] 1.2.840.114 [id number] 11:10:50 11:30:50 Only Fam Pob I Health 350.1.13.10 [place] 4.2.7.2.686 Professio [phone] [address]al [address] 2020-03-06 2020-03-06 Laboratory Lab, [facility] Fam Pob I [facility] 1.2. 840.114 [id number] Univers 11:10:50 11:30:50 Only Luciana Bhatt Health 350.1.13.10 ity of [place] 4.2.7.2.686 Nick as Professio [phone] N[place] dical [address] Office [facility] 2019-10-29 2019-10-29 Letter DESTINEE Scott 1.2.840.114 [id number] 00:00:00 00:00:00 (Out) Marni MILES 350.1.13.10 [facility] 4.2.7.2.686 [id number] [facility] 2019-10-29 2019-10-29 Letter DESTINEE Scott 1.2.840.114 [id number] Univers 00:00:00 00:00:00 (Out) Marni AHUJAY 350.1.13.10 i ty of [facility] 4.2.7.2.686 Nick as [phone] [address] 2019-10-28 2019-10-28 Laboratory Lab, [facility] 1.2.840.114 [id number] 14:07:16 14:27:16 Only Fam Pob I Health 350.1.13.10 [place] 4.2.7.2.686 Professio [id number] [address] 2019-10-28 2019-10-28 Laboratory Lab, [facility] Fam Pob I [facility] 1.2. 840.114 [id number] [facility] 14:07:16 14:27:16 Only Camilla [facility] 350.1.13.10 ity of [place] 4.2.7.2.686 Nick as Professio [phone] N[place] dical [address] Office [facility] 2019-10-28 2019-10-28 Outpatient R [facility] [id number] Univers 14:00:00 14:00:00 [facility] 2019-10-28 2019-10-28 Outpatient R [facility] [id number] Univers 13:40:00 13:40:00 [id number] [facility] Results Test Description Test Time Test Comments Results Result Comments Source COMP. METABOLIC PANEL (40106) 2020-12-11 22:39:58 Test Item Value Reference Range Interpretation Comme nts NA (test code = 2488657101) 137 mmol/L 135-145 K (test code = 9965540647) 3.9 mmol/L 3.5-5.0 CL (test code = 1909186254) 102 mmol/L 98-108 CO2 TOTAL (test code = 9646729881) 26 mmol/L 23-31 AGAP (test code = 2824040983) 2-16 BUN (test code = 5617898253) 15 mg/dL 7-23 GLUCOSE (test code = 4117292914) 132 mg/dL 70-110 H CREATININE (test code = 0.67 mg/dL 0.50-1.04 2446966836) TOTAL BILI (test code = 2.0 mg/dL 0.1-1.1 H 7893009585) CALCIUM (test code = 4020669874) 9.9 mg/dL 8.6-10.6 T PROTEIN (test code = 4503832619) 7.8 g/dL 6.3-8.2 ALBUMIN (test code = 5916206776) 4.7 g/dL 3.5-5.0 ALK PHOS (test code = 4213168959) 58 U/L 34-122 ALTv (test code = 1742-6) 35 U/L 5-35 AST(SGOT) (test code = 8422254508) 30 U/L 13-40 eGFR (test code = 7987335638) mL/min/1.73m2 SHADY (test code = SHADY) Association of Glomerular Filtration Rate (GFR) and Staging of Kidney Disease* + +-------- + ------+| GFR (mL/min/1.73 m2) ?| With Kidney Damage ?| ?Without Kidney Damage+ +-- + +| ?>90 ?| ?Stage one ?| ? Normal ?+ +------- + -------+| ?60-89 ?| ?Stage two ?| ? Decreased GFR ? + +-------- + ------+| ?30-59 ?| ?Stage three ?| ? Stage three ? + +-------- + ------+| ?15-29 ?| ?Stage four ? | ? Stage four ?+ +------- + -------+| ?<15 (or dialysis) ? ?| ?Stage five ? | ? Stage five ?+ +------- + -------+ *Each stage assumes the associated GFR level has been in effect for at least three months. ?Stages 1 to 5, with or without kidney disease, indicate chronic kidney disease. Notes: Determination of stages one and two (with eGFR >59mL/min/1.73 m2) requires estimation of kidney damage for at least three months as defined by structural or functional abnormalities of the kidney, manifested by either:Pathological abnormalities or Markers of kidney damage (including abnormalities in the composition of the blood or urine or abnormalities in imaging tests). Lab Interpretation (test code = Abnormal 59476-1) [facility] 22:39:36 Test Item Value Reference Range Interpretation Comments LIPASE (test code = 5797641594) 88 U/L 0-220 Lab Interpretation (test code = Normal 00416-4) [facility] WITH [id number] 22:32:33 Test Item Value Reference Range Interpretation Comments WBC (test code = See_Comment [Automated 90-2) message] The sy stem which generated this result transmitted reference range : 4.30 - 11.10 10*3/?L. The reference range was not used to interpret this result as normal/abnormal . RBC (test code = See_Comment [Automated 029-8) message] The sy stem which generated this result transmitted reference range : 3.93 - 5.25 10*6/?L. The reference range was not used to interpret this result as normal/abnormal . HGB (test code = 15.2 g/dL 11.6-15.0 H 718-7) HCT (test code = 44.3 % 35.7-45.2 4544-3) MCV (test code = 90.6 fL 80.6-95.5 787-2) MCH (test code = 31.1 pg 25.9-32.8 785-6) MCHC (test code = 34.3 g/dL 31.6-35.1 786-4) RDW-SD (test code = 39.8 fL 39.0-49.9 41155-5) RDW-CV (test code = 12.0 % 12.0-15.5 788-0) PLT (test code = See_Comment [Automated 637-3) message] The sy stem which generated this result transmitted reference range : 166 - 358 10*3/ ?L. The reference r aubree was not used to interpret this result as normal/abnormal . MPV (test code = 11.5 fL 9.5-12.9 73261-7) NRBC/100 WBC (test See_Comment [Automat ed code = 9930279329) message] The system which generated this result transmitted reference range : 0.0 - 10.0 /100 WBCs. The refer ence range was not u sed to interpret th is result as normal/abnormal . NRBC x10^3 (test code <0.01 See_Comment [Auto mated = 7629528948) message] The s ystem which generated this result transmitted reference range : 10*3/?L. The reference range was not used to interpret this result as normal/abnormal . GRAN MAT (NEUT) % 74.1 % (test code = 770-8) IMM GRAN % (test code 0.30 % = 4185406296) LYMPH % (test code = 18.3 % 736-9) MONO % (test code = 6.5 % 5905-5) EOS % (test code = 0.2 % 713-8) BASO % (test code = 0.6 % 706-2) GRAN MAT x10^3(ANC) 7.13 10*3/uL 1.88-7.09 H (test code = 0303908059) IMM GRAN x10^3 (test 0.03 10*3/uL 0.00-0.06 code = 7144969156) LYMPH x10^3 (test code 1.76 10*3/uL 1.32-3.29 = 731-0) MONO x10^3 (test code 0.63 10*3/uL 0.33-0.92 = 742-7) EOS x10^3 (test code = <0.03 0.03-0.39 L 711-2) BASO x10^3 (test code 0.06 10*3/uL 0.01-0.07 = 704-7) Lab Interpretation Abnormal (test code = 87652-5) [facility] 15:47:00 Test Item Value Reference Range Interpretation Comments SURG (test code = SURG) RUN DATE: 01/11/20 [facility] PAGE 1 RUN TIME: 1547 Specimen Inquiry RUN USER: INTERFACE PATIENT: JULIET BLEVINS LOC: MicheletLYNDA U #: [id number] AGE/SX: 44/F ROOM: RE01/07/20REG DR: Kathi Rodriguez : 71 BED: DIS: STATUS: [facility] TLOC: SPEC #: [id number] RECD: 01/07/20 STATUS: BULMARO REEugenio #: [id number] RAMILA: 01/07/[address]: Kathi Rodriguez MD ENTERED: 01/07/20 SP TYPE: SURG OTHR DR: No Primary or Family PhysicianORDERED: SURG PATH LVL 5 COPIES TO: No Primary or Family Physician Kathi Rodriguez MD [address] [place] [address] [id number] HISTOLOGY: TISSUE ID BLK PCS LATHA LEV PROCEDURE DISPOSITION ____ ___ ___ ___ UTERUS, NOS A 1 1 PROCEDURES: SURG PATH LVL 5 (01/07/20-1504) TISSUES: A. UTERUS, NOS - UTERUS, CERVIX AND BILATERAL TUBES CLINICAL HISTORY DYSMENORRHEA - N94.6; LEIOMYOMA - D25.9; FREQUENT MENSES - N92.1 CPT CODES CPT CODE(S): 09263 , , , , , , FINAL DIAGNOSIS Uterus, cervix and bilateral fallopian tubes, hysterectomy and bilateral salpingectomy: CHRONIC CERVICITIS WITH NABOTHIAN CYST ADENOMYOSIS LEIOMYOMAS AND ADENOMYOMAS BILATERAL FALLOPIAN TUBES WITH PARATUBAL CYSTS GROSS DESCRIPTION Uterus, cervix and bilateral fallopian tubes. Received in formalin is a 175.9-gram hysterectomy and bilateral salpingectomy specimen including a uterus with attached cervix (10.5 x 7.5 x 5.5 cm), left fallopian tube with fimbriated end (6.5 x 1.0 x 0.5 cm), and right fallopian tube with fimbriated end (5.5 x CONTINUED ON NEXT PAGE RUN DATE: 01/11/20 [facility] PAGE 2 RUN TIME: 1547 Specimen Inquiry RUN USER: INTERFACE SPEC #: [id number] PATIENT: JULIET BLEVINS #[id number] (Continued) GROSS DESCRIPTION (Continued) 1.0 x 0.5 cm). The serosal surface is beyer-brown, smooth and glistening. The cervix measures 3.6 x 3.3 x 4.0 cm (depth) with a linear os, 1.2 cm. The cervix contains cysts filled with translucent viscous fluid, the largest measures 0.7 cm in greatest dimension. The endometrial cavity measures 2.5 cm from cornu to cornu x 4.5 cm in length with a hemorrhagic endometrium, 0.3 cm. The myometrium is maximally 3.0 cm in thickness, and contains nodular areas. The left fallopian tube is slightly tortuous, is serially sectioned and has a patent lumen and is grossly unremarkable. There is a metallic coil embedded in the proximal end of the tube. The right fallopian tube is slightly tortuous, is serially sectioned and has a patent lumen and is grossly unremarkable except for two thin-walled paratubal cysts, 0.3 and 0.6 cm filled with translucent non-viscous fluid. There is a metallic coil embedded in the proximal end of the tube. ba/nr Church Worker sections submitted as follows: A1 Anterior cervix A2 Posterior cervix A3-A4 Anterior endometrium/myometrium A5-A6 Posterior endometrium/myometrium A7-A9 Additional sections of myometrium A10 Serosa (posterior cul-de-sac) A11 Entire fimbria - left fallopian tube A12 Cross-sections of left fallopian tube A13 Entire fimbria - right fallopian tube and paratubal cyst A14 Cross-sections of right fallopian tube and paratubal cyst Grossing performed at [facility] Pathology, [address] [place] [address], [address], [place], [place] [address]. Government Instructor: Lion Hurley M.D. MICROSCOPIC DESCRIPTION Uterus, cervix and bilateral fallopian tubes. Sections demonstrate squamous ectocervix and glandular endocervix with mild chronic cervicitis and nabothian cysts. Endometrium demonstrates secretory phase endometrium. The myometrium demonstrates areas of endometrial glands and stroma involving the smooth muscle. The myometrium demonstrates spindle cell nodules and occasional nodules with endometrial glands and stroma. No malignant features are seen. The serosal surface demonstrates no evidence of involvement by endometrial glands and stroma. Sections of the fallopian tubes demonstrate fimbriated end and associated fallopian tube. Occasional paratubal cysts are identified. Signed SIGNATURE ON FILE KatherinerenitaOtis M 01/11/20 1547 END OF REPORT - [facility] 1 [id number] 13:47:00 [facility] : 1975 Sex: F Name: JULIET BLEVINS [facility] : 1975 Age/S: 44 / F [address] Unit #: [id number] Loc: [place] [address] Phys: Kathi Rodriguez MD Acct: [id number] Dis Date: Status: PRE [facility] PHONE #: [phone] Exam Date: 01/04/2020 1202 FAX #: Reason: PREOP EXAMS: CPT: [id number] XR CHEST 1 V 59063 Fluoro Time: DAP (Gy m2): Air Kerma [...] MD PAGE 1 Signed Report Name: JULIET BLEVINS [facility] : 1975 Age/S: 44 / F [address] Unit #: [id number] Loc: [place] [address] Phys: Kathi Rodriguez MD Acct: [id number] Dis Date: Status: P RE [facility] PHONE #: [phone] Exam Date: 01/04/2020 1207 FAX #: Reason: PREOP EXAMS: CPT: [id number] XR CHEST 1 V 76893 Fluoro Time: DAP (Gy m2): Air Kerma (mGy): <Continued> Technologist: Regina Jaramillo, RT(R)(MR) Trnscb Date/Time: 01/04/2020 (1347) [email or web address] Orig Print D/T: S: 01/04/2020 (1350) PAGE 2 Signed ReportCOVID 19 INHOUSE [id number] 13:02:00 Test Item Value Reference Range Interpretation Comments COVID 19 INHOUSE AG NEGATIVE Negative Per manu facturer, (test code = negative result s should [id number]) be treated aspr esumptive and, if inconsi [...] and symptoms co nsistent with COVID-19. URINALYSIS [id number] 12:15:00 Test Item Value Reference Range Interpretation [...] LEUU) Urine Specimen Type: Clean CatchUR HCG [id number] 12:15:00 Test Item Value Reference Range Interpretation Comments UR HCG QUAL (test code = HCGQLU) NEGATIVE Urine Specimen Type: Clean CatchURINALYSIS [id number] 12:15:00 Test Item Value Reference Range Interpretation [...] LEUU) Urine Specimen Type: Clean CatchUR HCG [id number] 12:15:00 Test Item Value Reference Range Interpretation Comments UR HCG QUAL (test code = HCGQLU) NEGATIVE NEGATIVE Urine Specimen Type: Clean CatchCBC W/AUTO [id number] 12:11:00 Test Item Value Reference Range Interpretation [...] REQUIRED (test code NO DIFF/SCN CRITERIA = MDIFF)"
--- NOTE | 2021-06-13 11:56 | EDPHYS ---
Physician Documentation [facility] Name: Marissa Blevins Age: 45 yrs Sex: Female : 1975 Arrival Date: 06/13/2021 Time: 10:44 Bed 9 Private MD: ED Physician Misael Carreon HPI: 06/13 11:52 This 45 yrs old Female presents to ER via Ambulatory with complaints of Hand jr8 Pain. 11:52 Onset: The symptoms/episode began/occurred gradually, 2 day(s) ago. Modifying factors: jr8 The symptoms are alleviated by nothing, the symptoms are aggravated by movement. Associated signs and symptoms: The patient has no apparent associated signs or symptoms. Severity of symptoms: At their worst the symptoms were moderate, in the emergency department the symptoms are unchanged. The patient has not experienced similar symptoms in the past. The patient has not recently seen a physician. Patient stated that she was doing gardening and got a couple born stroke in her left hand dorsal aspect. Stated that now she is having pain with swelling and redness to the dorsal hand. Denies any other symptoms at this time.. TECHNOLOGY TRAINER: 11:31 LMP N/A - Post-menopause ap3 Historical: - Allergies: 11:29 No Known Allergies; ap3 - Home Meds: 11:29 None [Active]; ap3 - PMHx: 11:29 None; ap3 - Immunization history:: Client reports having NOT received the Covid vaccine. Last tetanus immunization: not up to date. Flu vaccine is not up to date. - Social history:: Smoking status: Patient denies any tobacco usage or history of. ROS: 11:52 Eyes: Negative for injury, pain, redness, and discharge, ENT: Negative for injury, jr8 pain, and discharge, Neck: Negative for injury, pain, and swelling, Cardiovascular: Negative for chest pain, palpitations, and edema, Respiratory: Negative for shortness of breath, cough, wheezing, and pleuritic chest pain, Abdomen/GI: Negative for abdominal pain, nausea, vomiting, diarrhea, and constipation, Back: Negative for injury and pain, Neuro: Negative for headache, weakness, numbness, tingling, and seizure. 11:52 MS/extremity: Positive for erythema, pain, swelling, tenderness, of the left hand. 11:52 Skin: Positive for erythema. Exam: 11:52 Constitutional: This is a well developed, well nourished patient who is awake, alert, jr8 and in no acute distress. Cardiovascular: Regular rate and rhythm with a normal S1 and S2. No gallops, murmurs, or rubs. Normal PMI, no JVD. No pulse deficits. Respiratory: Lungs have equal breath sounds bilaterally, clear to auscultation and percussion. No rales, rhonchi or wheezes noted. No increased work of breathing, no retractions or nasal flaring. Skin: Warm, dry with normal turgor. Normal color Neuro: Awake and alert, GCS 15, oriented to person, place, time, and situation. Cranial nerves II-XII grossly intact. Motor strength 5/5 in all extremities. Sensory grossly intact. 11:52 Musculoskeletal/extremity: Extremities: grossly normal except: noted in the left hand: Patient has mild erythema to the left dorsal hand at the fourth MCP joint with extension approximately towards the wrist. Mild swelling with pain upon palpation noted. Mild pain with active and passive range of motion but has full ROM to both. No identifiable retained foreign body noted on physical exam, ROM: intact in all extremities, Circulation is intact in all extremities. Sensation intact. Vital Signs: 11:27 BP 113 / 68 RA; Pulse 71; Resp 17; Temp 97.9; Pulse Ox 99% ; Weight 65.77 kg; Height 4 ap3 ft. 11 in. (149.86 cm); 11:27 Body Mass Index 29.29 (65.77 kg, 149.86 cm) ap3 MDM: 11:48 Patient medically screened. [facility] 11:52 Data reviewed: vital signs, nurses notes, and as a result, I will discharge patient. jr8 Data interpreted: Pulse oximetry: on room air is 99 %. Interpretation: normal. Counseling: I had a detailed discussion with the patient and/or guardian regarding: the historical points, exam findings, and any diagnostic results supporting the discharge/admit diagnosis, the need for outpatient follow up, a family practitioner, to return to the emergency department if symptoms worsen or persist or if there are any questions or concerns that arise at home. Administered Medications: No medications were administered Disposition Summary: 06/13/21 11:55 Discharge Ordered Location: Home [facility] Problem: new jr8 Symptoms: have improved jr8 Condition: Stable jr8 Diagnosis - Cellulitis of left upper limb - Left hand jr8 Followup: jr8 - With: Private Physician - When: 2 - 3 days - Reason: Recheck today's complaints, Continuance of care, Re-evaluation by your physician Discharge Instructions: - Discharge Summary Sheet jr8 - Cellulitis, Adult jr8 Forms: - Medication Reconciliation Form jr8 - Thank You Letter jr8 - Antibiotic Education jr8 - Prescription Opioid Use jr8 Prescriptions: - Bactrim DS 800-160 mg Oral Tablet - take 1 tablet by ORAL route every 12 hours for 7 days; 14 tablet; Refills: 0, jr8 Product Selection Permitted Signatures: Malik Page PA PA jr8 Maryellen Rasheed RN RN ap3 Lul Raphael RN RN ll1 Corrections: (The following items were deleted from the chart) 11:30 11:30 Social history: Smoking status: ll1 ll1
--- NOTE | 2021-06-13 11:56 | ER ---
Nurse's Notes [facility] Name: Marissa Blevins Age: 45 yrs Sex: Female : 1975 Arrival Date: 06/13/2021 Time: 10:44 Bed 9 Private MD: Diagnosis: Cellulitis of left upper limb-Left hand Presentation: 06/13 11:27 Chief complaint: Patient states: she was working in the yard on Saturday06/11/2021 when ap3 she hit her left hand on either the fencing or a thorn. Patient states she is here at the ER for evaluation of her left hand because she woke up this morning with increased pain and swelling to the left hand. Coronavirus screen: At this time, the client does not indicate any symptoms associated with coronavirus-19. Ebola Screen: No symptoms or risks identified at this time. Initial Sepsis Screen: Does the patient meet any 2 criteria? No. Patient's initial sepsis screen is negative. Does the patient have a suspected source of infection? Yes: Skin breakdown/wound. Risk Assessment: Do you want to hurt yourself or someone else? Patient reports no desire to harm self or others. Onset of symptoms was June 11, 2021. 11:27 Method Of Arrival: Ambulatory ap3 11:27 Acuity: ABUNDIO 4 ap3 Triage Assessment: 11:30 General: Appears in no apparent distress. Behavior is calm, cooperative, appropriate ap3 for age. Pain: Complains of pain in dorsal aspect of proximal phalanx of left middle finger, dorsal aspect of proximal phalanx of left ring finger and dorsum of left hand Pain currently is 8 out of 10 on a pain scale. Pain began suddenly, 2-3 days ago. Neuro: Level of Consciousness is awake, alert, obeys commands, Oriented to person, place, time, situation, Appropriate for age Gait is steady. Cardiovascular: Patient's skin is warm and dry. Respiratory: Airway is patent Respiratory effort is even, unlabored, Respiratory pattern is regular, symmetrical. Derm: Wound noted left hand. Musculoskeletal: Swelling present in dorsal aspect of proximal phalanx of left middle finger, dorsal aspect of proximal phalanx of left ring finger and dorsum of left hand. REWORKER: 11:31 LMP N/A - Post-menopause ap3 Historical: - Allergies: 11:29 No Known Allergies; ap3 - Home Meds: 11:29 None [Active]; ap3 - PMHx: 11:29 None; ap3 - Immunization history:: Client reports having NOT received the Covid vaccine. Last tetanus immunization: not up to date. Flu vaccine is not up to date. - Social history:: Smoking status: Patient denies any tobacco usage or history of. Screenin:30 Abuse screen: Denies threats or abuse. Nutritional screening: No deficits noted. ll1 Tuberculosis screening: No symptoms or risk factors identified. Fall Risk Total Hickman Fall Scale indicates No Risk (0-24 pts). Assessment: 11:59 Reassessment: No changes from previously documented assessment. Patient and/or family ll1 updated on plan of care and expected duration. Pain level reassessed. Patient is alert, oriented x 3, equal unlabored respirations, skin warm/dry/pink. Vital Signs: 11:27 BP 113 / 68 RA; Pulse 71; Resp 17; Temp 97.9; Pulse Ox 99% ; Weight 65.77 kg; Height 4 ap3 ft. 11 in. (149.86 cm); 11:27 Body Mass Index 29.29 (65.77 kg, 149.86 cm) ap3 ED Course: 10:44 Patient arrived in ED. ds1 11:29 Triage completed. ap3 11:29 Lul Raphael, SILVIA is Primary Nurse. ll1 11:29 Arm band placed on Patient placed in an exam room, on a stretcher. ll1 11:48 Malik Page PA is PHCP. jr8 11:48 Misael Carreon MD is Attending Physician. jr8 12:00 No provider procedures requiring assistance completed. Patient did not have IV access ll1 during this emergency room visit. 12:01 Patient has correct armband on for positive identification. Bed in low position. Call ll1 light in reach. Cardiac monitoring not applicable on this patient. Administered Medications: No medications were administered Outcome: 11:55 Discharge ordered by . jr8 12:00 Discharged to home ambulatory. ll1 12:00 Condition: stable 12:00 Discharge instructions given to patient, Instructed on discharge instructions, follow up and referral plans. medication usage, Demonstrated understanding of instructions, follow-up care, medications, Prescriptions given X 1. 12:01 Patient left the ED. ll1 Signatures: Cara Cole ds1 Malik Page PA PA jr8 Maryellen Rasheed RN RN ap3 Lul Raphael RN RN ll1 Corrections: (The following items were deleted from the chart) 11:30 11:30 Social history: Smoking status: [facility]
[2021-06-13 16:08] VITALS: BP 113/68; TEMP 97.9; O2SAT 99
== END 2021-06-13 12:01 | disposition home or self-care (01) ==
LOC: ER 10:40
DX: L03.114 Cellulitis of left upper limb (principal)
CPT/HCPCS: 99282

== ENCOUNTER → 2023-05-31 | Emergency (ER) | payer BC ==
[~2023-05-31] MED LIST: IBUPROFEN 200 MG TAB PO ONE; IBUPROFEN 400 MG TAB ONE
--- OUTSIDE RECORDS SUMMARY | 2023-05-31 15:51 | XMS REPORT | Continuity of Care Document ---
Author Name Unknown Address [address] [facility] [address] [place] [address] [facility] thconnect Address [address] [facility] [address] [place] [address] Care Team Providers Care Student Support Services Director Name Role Phone Pcp, Patient Does Not Have A Primary Care Physic mahogany Kathi Rodriguez Attending Clinician Un available [email or web address]_[email or web address]_S Attending Clinician UnavailKAMERON Saez Attending Clinician Unavailable Kameron Tellez Attending Clinician [phone] Doctor Unassigned, [place] Attending Clinician U Destinee Veliz DO Attending Clinician [phone] LUCIANA MILLER Attending Clinician Unavailable Lab, Adc Fam Pob I Attending Clinician UnavailLuciana Waters Attending Clinician [phone] Marni Scott RN Attending Clinician UnavailIsabela Figueroa Attending Clinician [phone] [email or web address]_S Admitting Clinician Unavaila ble Payers Payer Name Policy Type Policy Number Effective Date Expirati on Date Source [facility] [id number] 2017 00:00:00 Problems Condition Name Condition Details Condition Category Status Onset Date Resolution Date Last Treatment Date Treating Clinician Comments Source No known active problems No known active problems Disease [facility] Allergies, Adverse Reactions, Alerts Allergy Name Allergy Type Status Severity Reaction(s) Onset Date Inactive Date Treating Clinician Comments Source No Known Allergie s DA Active U 2019-03 0- 00:00: 00 [facility] No Known Allergie s DA Active U 2019-03 0- 00:00: 00 [facility] NO KNOWN ALLERGIE S Drug Class Active [facility] Social History Social Habit Start Date Stop Date Quantity Comments Source Sexual orientation U [facility] Exposure to SARS-CoV-2 (event) 2021-02-23 00:00:00 2021-03-25 17:51:00 Yes [facility] Sex Assigned At 1975 00:00:00 1975 00:00:00 [facility] Smoking Status Start Date Stop Date Source Tobacco smoking consumption unknown [facility] Medications Ordered Medication Name Filled Medication Name Start Date Stop Date Current Medication? Ordering Clinician Indication Dosage Frequency Signature (SIG) Comments Components Source ondansetron (ZOFRAN-ODT ) disintegrat ing tablet 4 mg 03-26 01:00: 00 03-26 00:07 :00 No 4mg 4 mg, Oral, ONCE, 1 dose, On 03/25/21 at 1900, SAMIR [facility] benzonatate 100 mg capsule 03-25 00:00: 00 Yes [id number] 100mg Take 1 capsule by mouth 3 (three) times daily as needed for Cough. [facility] ondansetron (ZOFRAN ODT) 4 mg disintegrat ing tablet 03-25 00:00: 00 Yes [id number] 4mg Take 1 tablet by mouth every 8 (eight) hours as needed for Nausea and Vomiting (N/V). [facility] NaCl 0.9% (NS) bolus infusion 1,000 mL 2020-03 23:15: 00 12-11 23:52 :00 No 1000mL at 999 mL/hr, 1,000 mL, IV Piggyback, ONCE, 1 dose, On Sat12/11/20 at 1815, STAT [facility] ondansetron (ZOFRAN (PF)) injection 4 mg 2020-03 23:15: 00 12-11 22:15 :00 No 4mg 4 mg, Slow IV Push, ONCE, 1 dose, On Sat12/11/20 at 1815, SAMIR [facility] ondansetron (ZOFRAN ODT) 4 mg disintegrat ing tablet 2020-03 00:00: 00 Yes [id number] 4mg Take 1 tablet by mouth every 8 (eight) hours as needed for Nausea and Vomiting (N/V). [facility] ondansetron (ZOFRAN ODT) 4 mg disintegrat ing tablet 2020-03 00:00: 00 Yes [id number] 4mg Take 1 tablet by mouth every 8 (eight) hours as needed for Nausea and Vomiting (N/V). [facility] ondansetron (ZOFRAN ODT) 4 mg disintegrat ing tablet 2020-03 00:00: 00 Yes [id number] 4mg Take 1 tablet by mouth every 8 (eight) hours as needed for Nausea and Vomiting (N/V). [facility] ondansetron (ZOFRAN ODT) 4 mg disintegrat ing tablet 2020-03 00:00: 00 Yes [id number] 4mg Take 1 tablet by mouth every 8 (eight) hours as needed for Nausea and Vomiting (N/V). [facility] Vital Signs Vital Name Observation Time Observation Value Comments S ource Body height 2021-03-25 23:53:00 149.9 cm [facility] Body weight 2021-03-25 23:53:00 63.504 kg [facility] BMI 2021-03-25 23:53:00 28.28 kg/m2 [facility] Oxygen saturation in Arterial blood by Pulse oximetry 2021-03-25 23:53:00 98 /min [facility] Systolic blood pressure 2021-03-25 23:53:00 123 mm[Hg] [facility] Diastolic blood pressure 2021-03-25 23:53:00 69 mm[Hg] [facility] Heart rate 2021-03-25 23:53:00 113 /min [facility] Body temperature 2021-03-25 23:53:00 37.44 Tanisha [facility] Respiratory rate 2021-03-25 23:53:00 18 /min [facility] Systolic blood pressure 2020-12-11 23:00:00 114 mm[Hg] [facility] Diastolic blood pressure 2020-12-11 23:00:00 78 mm[Hg] [facility] Heart rate 2020-12-11 23:00:00 79 /min [facility] Respiratory rate 2020-12-11 23:00:00 18 /min [facility] Oxygen saturation in Arterial blood by Pulse oximetry 2020-12-11 23:00:00 98 /min [facility] Body temperature 2020-12-11 22:07:00 36.78 Tanisha [facility] Body height 2020-12-11 22:07:00 149.9 cm [facility] Body weight 2020-12-11 22:07:00 63.504 kg [facility] BMI 2020-12-11 22:07:00 28.28 kg/m2 [facility] Procedures Procedure Date / Time Performed Performing Clinicia n Source CONSENT/REFUSAL FOR DIAGNOSIS AND TREATMENT 2021-03-25 23:41:06 Doctor Unassigned, [place] [facility] LIPASE 2020-12-11 22:14:00 [facility]. METABOLIC PANEL ([id number]) 2020-12-11 22:14:00 Destinee Mahoney [facility] CBC WITH DIFF 2020-12-11 22:14:00 [facility] NOTICE OF PRIVACY PRACTICES 2020-12-11 22:02:31 Doctor Unassigned, [place] [facility] CONSENT/REFUSAL FOR DIAGNOSIS AND TREATMENT 2020-12-11 22:02:15 Doctor Unassigned, [place] [facility] Encounters Start Date/Time End Date/Time Encounter Type Admission Type Attending [facility] Care Department Encounter ID Source 2021-01-10 03:25:[address] [facility] [id number] [facility] 2020-01-04 11:00:00 Inpatient Kathi Rodriguez [facility] SYDNI [id number] [facility] 2023-01-07 00:00:00 2023-01-07 00:00:00 Outpatient GC_GCBZW_Ka diyala_S PRIV [facility] [id number] [facility] 2021-03-25 17:55:00 2021-03-25 18:48:00 [id number] 2021-03-25 17:55:00 2021-03-25 18:48:[address] [facility] 1.2.840.114 350.1.13.10 4.2.7.2.686 [id number] [facility] 2021-03-25 00:00:00 2021-03-25 00:00:00 Orders Only Doctor Unassigned, [place] [facility] 1.2.840.114 350.1.13.10 4.2.7.2.686 [id number] [facility] 2021-02-24 00:00:00 2021-02-24 00:00:00 Patient Secure Msg Doctor Unassigned, [place] [facility] 1.2.840.114 350.1.13.10 4.2.7.2.686 [id number] [facility] 2020-12-11 17:06:00 2020-12-11 18:58:00 Emergency Destinee Mahoney [facility] 1.2.840.114 350.1.13.10 4.2.7.2.686 [id number] [facility] 2020-12-11 00:00:00 2020-12-11 00:00:00 Orders Only Doctor Unassigned, [place] [facility] 1.840.114 350.1.13.10 4.2.7.2.686 [id number] [facility] 2020-03-06 15:20:00 2020-03-06 15:20:00 Outpatient R [facility] [id number] [facility] 2020-03-06 11:10:50 2020-03-06 11:30:50 Laboratory Only Lab, [facility] One 1.0.114 350.1.13.10 4.2.7.2.686 [id number] 2020-03-06 11:10:50 2020-03-06 11:30:50 [facility] 1.0.114 350.1.13.10 4.2.7.2.686 [id number] [facility] 2019-10-29 00:00:00 2019-10-29 00:00:00 [facility] 1.0.114 350.1.13.10 4.2.7.2.686 [id number] 2019-10-29 00:00:00 2019-10-29 00:00:00 Patient Secure Msg Doctor Unassigned, [place] [facility] 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 [facility] 1.0.114 350.1.13.10 4.2.7.2.686 [id number] [facility] 2019-10-29 00:00:00 2019-10-29 00:00:00 Letter (Out) [place] [facility] 1.0.114 350.1.13.10 4.2.7.2.686 [id number] [facility] 2019-10-28 14:07:16 2019-10-28 14:27:16 Laboratory Only Lab, [facility] I Isabela Mariscal [facility] Building One 1.0.114 350.1.13.10 4.2.7.2.686 [id number] [facility] 2019-10-28 14:07:16 2019-10-28 14:27:16 Laboratory Only Lab, [facility] Office Building One 1.0.114 350.1.13.10 4.2.7.2.686 [id number] 2019-10-28 14:00:00 2019-10-28 14:00:[address] [facility] [id number] [facility] Results Test Description Test Time Test Comments Results Result Co mments Source [facility] 22:39:36* Test Item Value Reference Range Interpretation Comme nts LIPASE (test code = 3472663325) 88 U/L 0-220 Lab Interpretation (test cod e = 48850-3) Normal [facility] WITH [id number] 22:32:33* Test Item Value Reference Range Interpretation Comme nts WBC (test code = 6690-2) See_Comment [Automated The X Traina ge] The system which generated this result transmitted reference range: 4.30 - 11.10 10*3/?L. The reference range was not used to interpret this result as normal/abnormal. RBC (test code = 789-8) See_Comment [Automated The [employer] ge] The system which generated this result transmitted reference range: 3.93 - 5.25 10*6/?L. The reference range was not used to interpret this result as normal/abnormal. HGB (test code = 718-7) 15.2 g/dL 11.6-15.0 H HCT (test code = 4544-3) 44.3 % 35.7-45.2 MCV (test code = 787-2) 90.6 fL 80.6-95.5 MCH (test code = 785-6) 31.1 pg 25.9-32.8 MCHC (test code = 786-4) 34.3 g/dL 31.6-35.1 RDW-SD (test code = 10764-0) 39.8 fL 39.0-49.9 RDW-CV (test code = 788-0) 12.0 % 12.0-15.5 PLT (test code = 777-3) See_Comment [Automated messa ge] The system which generated this result transmitted reference range: 166 - 358 10*3/?L. The reference range was not used to interpret this result as normal/abnormal. MPV (test code = 54380-9) 11.5 fL 9.5-12.9 NRBC/100 WBC (test code = 6173792363) See_Comment [Automated Win Win Slots ssage] The system which generated this result transmitted reference range: 0.0 - 10.0 /100 WBCs. The reference range was not used to interpret this result as normal/abnormal. NRBC x10^3 (test code = 3270755027) <0.01 See_Comment [Automated The X Tra[employer] ge] The system which generated this result transmitted reference range: 10*3/?L. The reference range was not used to interpret this result as normal/abnormal. GRAN MAT (NEUT) % (test code = 770-8) 74.1 % IMM GRAN % (test code = 4373290967) 0.30 % LYMPH % (test code = 736-9) 18.3 % MONO % (test code = 5905-5) 6.5 % EOS % (test code = 713-8) 0.2 % BASO % (test code = 706-2) 0.6 % GRAN MAT x10^3(ANC) (test code = 1841108593) 7.13 10*3/uL 1.88-7.09 H IMM GRAN x10^3 (test code = 1281192638) 0.03 10*3/uL 0.00-0.06 LYMPH x10^3 (test code = 731-0) 1.76 10*3/uL 1.32-3.29 MONO x10^3 (test code = 742-7) 0.63 10*3/uL 0.33-0.92 EOS x10^3 (test code = 711-2) <0.03 0.03-0.39 L BASO x10^3 (test code = 704-7) 0.06 10*3/uL 0.01-0.07 Lab Interpretation (test code = 78540-2) Abnormal [facility] 15:47:00* Test Item Value Reference Range Interpretation Comme nts SURG (test code = SURG) RUN DATE: 01/11/20 [facility] PAGE 1 RUN TIME: 1547 Specimen Inquiry RUN USER: INTERFACE PATIENT: JULIET BLEVINS LOC: ARIANE U #: [id number] AGE/SX: 44/F ROOM: RE01/07/20REG DR: Kathi Rodriguez : 71 BED: DIS: STATUS: CHRISTINA SILVERIO TLOC: SPEC #: [id number] RECD: 01/07/20 STATUS: BULMARO PURVIS #: [id number] RAMILA: 01/07/[address]: Kathi Rodriguez MD ENTERED: 01/07/20 SP TYPE: SURG OTHR DR: No Primary or Family PhysicianORDERED: SURG PATH LVL 5 COPIES TO: No Primary or Family Physician Kathi Rodriguez MD [address] [place] [address] HISTOLOGY: TISSUE ID BLK PCS LATHA LEV PROCEDURE DISPOSITION ____ ___ ___ ___ UTERUS, NOS A 1 1 PROCEDURES: SURG PATH LVL 5 (01/07/20) TISSUES: A. UTERUS, NOS - UTERUS, CERVIX AND BILATERAL TUBES CLINICAL HISTORY DYSMENORRHEA - N94.6; LEIOMYOMA - D25.9; FREQUENT MENSES - N92.1 CPT CODES CPT CODE(S): 16089 , , , , , , FINAL [...] CONTINUED ON NEXT PAGE RUN DATE: 01/11/20 [facility] PAGE 2 RUN TIME: 1547 Specimen Inquiry RUN USER: INTERFACE SPEC #: [facility]:[id number] PATIENT: JULIET BLEVINS #[id number] (Continued) GROSS DESCRIPTION (Continued) 1.0 x 0.5 [...] the proximal end of the tube. ba/nr Fruit Rancher sections submitted as follows: A1 Anterior cervix A2 Posterior cervix A3-A4 Anterior endometrium/myometrium A5-A6 Posterior endometrium/myometrium A7-A9 Additional sections of myometrium A10 Serosa (posterior cul-de-sac) A11 Entire fimbria - left fallopian tube A12 Cross-sections of left fallopian tube A13 Entire fimbria - right fallopian tube and paratubal cyst A14 Cross-sections of right fallopian tube and paratubal cyst Grossing performed at [facility] Pathology, [address] [place] [address], [address], [place] [address]. Machine Plate Stacker: Lion Hurley M.D. MICROSCOPIC DESCRIPTION Uterus, cervix [...] cysts are identified. Signed SIGNATURE ON FILE VaniaOtis M 01/11/20 1547 END OF REPORT - CHEST 1 [id number] 13:47:00 [facility] 1975 Sex: F Name: JULIET BLEVINS [facility] : 1975 Age/S: 44 / F [address] Unit #: [id number] Loc: [place] [address] Phys: Kathi Rodriguez MD Acct: [id number] Dis Date: Status: PRE SDC PHONE #: [phone] Exam Date: 01/04/2020 1202 FAX #: Reason: PREOP EXAMS: CPT: [id number] XR CHEST 1 V 18723 Fluoro Time: DAP (Gy m2): Air Kerma [...] PAGE 1 Signed Report Name: JULIET BLEVINS [facility] : 1975 Age/S: 44 / F [address] Unit #: [id number] Loc: [place] [address] Phys: Kathi Rodriguez MD Acct: [id number] Dis Date: Status: PRE SDC PHONE #: [phone] Exam Date: 01/04/2020 1207 FAX #: Reason: PREOP EXAMS: CPT: [id number] XR CHEST 1 V 29361 Fluoro Time: DAP (Gy m2): Air Kerma (mGy): (Co ntinued) Technologist: Regina Jaramillo, RT(R)(MR) Trnscb Date/Time: 01/04/2020 (0724) ElidiaANS4 OrigPrint D/T: S: 01/04/2020 (0433) PAGE 2 Signed ReportCOVID 19 INHOUSE [id number] 13:02:00* Test Item Value Reference Range Interpretation Comme nts COVID 19 INHOUSE AG (test code = [id number]) NEGATIVE Negative Per recovery room rn , negative results should be treated aspresumptive and, if inconsistent with clinical signs andsymptoms or necessary for patient management, should betested with an alternative molecular assay. Negative resultsdo not preclude SARS-CoV-2 infection and should not be usedas the sole basis for patient management decisions. Negative results should be considered in the context of apatient's recent exposures, history, presence of clinicalsigns and symptoms consistent with COVID-19. URINALYSIS [id number] 12:15:00* Test Item Value Reference Range Interpretation Comme nts UA GLUCOSE DIPSTICK (test code = DGLUU) NEGATIVE mg/dL NEG UA BILIRUBIN DIPSTICK (test code = BILU) NEGATIVE mg/dL NEG UA KETONE DIPSTICK (test code = KETU) NEGATIVE mg/dL NEG UA SPECIFIC GRAVITY (test code = SGU) 1.010 SG 1.005-1.030 UA BLOOD DIPSTICK (test code = SAPPHIRE) NEGATIVE mg/DL NEG UA PH DIPSTICK (test code = ABELARDO) <=5.0 pH UNITS 5.0-7.0 UA PROTEIN DIPSTICK (test code = PROU) NEGATIVE mg/dL NEG UA UROBILINIOGEN DIPSTICK (test code = URO) 0.2 mg/dL <2.0 UA NITRITE DIPSTICK (test code = DAYA) NEGATIVE SCREEN NEG UA LEUKOCYTE ESTERASE DIPSTICK (test code = LEUU) NEGATIVE Leuk/mcL NEGATIVE Urine Specimen Type: Clean CatchUR HCG [id number] 12:15:00* Test Item Value Reference Range Interpretation Comme nts UR HCG QUAL (test code = HCGQLU) NEGATIVE Urine Specimen Type: Clean CatchURINALYSIS [id number] 12:15:00* Test Item Value Reference Range Interpretation Comme nts UA GLUCOSE DIPSTICK (test code = DGLUU) NEGATIVE mg/dL NEG UA BILIRUBIN DIPSTICK (test code = BILU) NEGATIVE mg/dL NEG UA KETONE DIPSTICK (test code = KETU) NEGATIVE mg/dL NEG UA SPECIFIC GRAVITY (test code = SGU) 1.010 SG 1.005-1.030 UA BLOOD DIPSTICK (test code = SAPPHIRE) NEGATIVE mg/DL NEG UA PH DIPSTICK (test code = ABELARDO) <=5.0 pH UNITS 5.0-7.0 UA PROTEIN DIPSTICK (test code = PROU) NEGATIVE mg/dL NEG UA UROBILINIOGEN DIPSTICK (test code = URO) 0.2 mg/dL <2.0 UA NITRITE DIPSTICK (test code = DAYA) NEGATIVE SCREEN NEG UA LEUKOCYTE ESTERASE DIPSTICK (test code = LEUU) NEGATIVE Leuk/mcL NEGATIVE Urine Specimen Type: Clean CatchUR HCG [id number] 12:15:00* Test Item Value Reference Range Interpretation Comme nts UR HCG QUAL (test code = HCGQLU) NEGATIVE NEGATIVE Urine Specimen Type: Clean CatchCBC W/AUTO [id number] 12:11:00* Test Item Value Reference Range Interpretation Comme nts WHITE BLOOD CELL (test code = WBC) 6.9 K/mm3 3.5-11.0 N RED BLOOD CELL (test code = RBC) 4.37 M/mm3 4.70-6.10 L HEMOGLOBIN (test code = HGB) 12.5 G/DL 10.4-14.9 N HEMATOCRIT (test code = HCT) 39.2 % 31.5-44.1 N MEAN CELL VOLUME (test code = MCV) 89.7 Fl 84.5-98.6 N MEAN CELL HGB (test code = MCH) 28.6 pg 27.0-34.2 N MEAN CELL HGB CONCETRATION (test code = MCHC) 31.9 G/DL 31.5-34.0 N RED CELL DISTRIBUTION WIDTH (test code = RDW) 13.9 SD 11.5-14.5 N PLATELET COUNT (test code = PLT) 274 K/mm3 150-450 N MEAN PLATELET VOLUME (test c ode = MPV) 11.50 fL 7.0-10.5 H NEUTROPHIL % (test code = NT%) 65.7 % 40-76 N IMMATURE GRANULOCYTE % (test code = IG%) 0.3 % 0.0-5.0 N LYMPHOCYTE % (test code = LY%) 25.5 % 20.5-51.1 N MONOCYTE % (test code = MO%) 6.1 % 1.7-9.3 N EOSINOPHIL % (test code = EO%) 1.7 % 0.0-6.0 N BASOPHIL % (test code = BA%) 0.7 % 0.0-2.0 N NUCLEATED RBC % (test code = NRBC%) 0.0 /100WBC% 0.0-1.0 N NEUTROPHIL # (test code = NT#) 4.5 K/mm3 1.8-7.6 N IMMATURE GRANULOCYTE # (test code = IG#) 0.02 x10 3/uL 0.00-0.03 N LYMPHOCYTE # (test code = LY#) 1.8 K/mm3 0.6-3.2 N MONOCYTE # (test code = MO#) 0.4 K/mm3 0.3-1.1 N EOSINOPHIL # (test code = EO#) 0.1 K/mm3 0.0-0.4 N BASOPHIL # (test code = BA#) 0.1 K/mm3 0.0-0.1 N NUCLEATED RBC # (test code = NRBC#) 0.0 K/mm3 0.0-0.1 N MANUAL DIFF REQUIRED (test c ode = MDIFF) NO DIFF/SCN CRITERIA Notes Date/Time Note Provider Source 2020-01-07 22:58:00 [id number] [address] PATIENT NAME: JULIET BLEVINS ADMIT DATE: 01/07/20ACCOUNT NO: [id number] ROOM NO: AGE: 44 REPORT TYPE: OPERATIVE REPORT SEX: F ADMITTING PHYSICIAN: ATTENDING PHYSICIAN: Kathi Rodriguez MD OPERATION DATE: 01/07/2020 PREOPERATIVE DIAGNOSIS: (AUB-L), menorrhagia and dysmenorrhea, leiomyomata. POSTOPERATIVE DIAGNOSIS: (AUB-L), menorrhagia and dysmenorrhea, leiomyomata. PROCEDURES PERFORMED: Total laparoscopic hysterectomy, bilateral salpingectomyand cystoscopy. SURGEON: Kathi Rodriguez MD. ELECTRON TUBE ASSEMBLER: SCAR Bedoya. ANESTHESIA: General endotracheal. SPECIMENS: Uterus, bilateral tubes. COMPLICATIONS: None. DRAINS: None. CONDITION: The patient's condition is stable. FINDINGS: Essure coils within the tubes not seen outside. No otherabnormalities noted on the tubes, appeared to be completely unremarkable.Ovaries normal. Uterus enlarged. Very small amount of endometriotic implantson the serosa of the uterine lining posteriorly. Cystoscopy of both ureteralorifices were well visualized with good jets of urine, no foreign body in the bladder. PROCEDURE IN DETAIL: After informed consent was verified, the patient was takenback to the OR and placed in supine position on the operating table. Generalanesthesia was given. Ancef 2 g was given, then placed in dorsal lithotomyposition using Torito stirrups. Abdomen, vulva, vagina, and perineum wereprepped and draped in sterile fashion. Arms tucked by the side and positioningchecked. Time-out was done. Insufflation started. Speculum placed to exposethe cervix. Anterior lip was grasped with the Allis clamps. The large VCareintroduced into the uterus and fixed in place. Stokes was attached to drain thebladder and attached for retrograde filling. 1 cm infraumbilical incision was made with a scalpel. A supraumbilical incision was made with a scalpelusing open laparoscopy technique. Fascia was incised, tagged with 0 Vicrylsutures. Peritoneum entered bluntly. S retractors placed. After insufflation PATIENT NAME: JULIET BLEVINS adequately, site of entry was checked and unremarkable. Upper abdominal surfacewas unremarkable as well. The 5-mm left lower quadrant and 10 mm suprapubic ports were placed under direct vision. Courses of both ureters were traced from the pelvic brim to the ureteric tunnel and there was no distortion. A small peritoneal cyst present in the posterior cul-de-sac medial to the rightuterosacral ligament with no evidence of endometriosis. However, implants seen close to the vaginal cuff. Then, this was removed along with the uterine specimen. The left tube was dissected from the fimbriated end towards the cornual end and uteroovarian ligament and round ligament taken down. Broadligament opened up anteriorly, the peritoneum taken down to the bladder flapall the way to the opposite round ligament and posteriorly, the peritoneum takendown to the uterosacral on the left side, broad ligament skeletonized. Vesselswere exposed and were cauterized. Then, bladder flap was raised appropriately.Attention was directed to the opposite side. The fimbriated end and the mesosalpinx were taken down all the way to the cornual end. Then, uteroovarian ligament and round ligament were taken down. Broad ligament anteriorly opened up and connected with the bladder flap on the opposite side. Posteriorly, the broad ligament was taken down to the uterosacral insertion on the right side. The broad ligament was taken down and vessels skeletonized and the vessels were taken down with the help of the bipolar cautery then with the help of the LigaSure. The uterine artery lines were taken down. There was slight amount of bleeding from the anterior vaginal cuff at 2 o'clock position and 4, bleeding cauterized with the help of bipolar after the specimen was detached. Cardinal ligaments were taken down, then on the opposite side, the uterineartery and vein were all taken down as well as the descending branches.Cardinal ligaments taken down. Circumferential colpotomy with the monopolarhook blade. Specimen detached and pulled out through the vagina. Both tubeswere attached and contained with the specimen. Thorough irrigation, suction was performed. Cauterization of the vaginal cuff at 10 and 8 o'clock positions, 2 and 12 o'clock position. Once hemostasis was secured, Angle suture was placed on the left side first, then on the right side with 0 Vicryl sutures and simple sutures were placed and tied down 3 oezwlsj-yw-vncgo were taken in the center and there was excellent apposition. On the right angle, there appeared to be bleeding at the end of suction, so the bleeding was not well controlled with cautery as this angle was closed with the suture and the bleeding appeared to be coming from an area close to the suture line. So, the suture was cut. Hemostasis was secured, dissected to the bleeding site, then a suture was placed at the angle and tied down. As a consequence of this, cystoscopy was performed and ureters were patent. Going back into the abdomen,the procedure was completed. After thorough irrigation was performed and good hemostasis was ensured on both sides, then all the trocars were removed. Gas was desufflated. The fascia was injected at entry and exit as well as the skin at all sites. Fascia at the umbilicus was closed with the help of 0 Vicryl tag suture, tied to each other .All the skin incisions with interrupted 4- 0 Vicryl and the vaginal retractor vault and Stokes were removed. Instrument and sponge counts were correct. The patient was recovered from anesthesia and taken to PACU in stable condition. EBL was 50 mL. Dictated By: Kathi Rodriguez MD WT: OP:L.JILL/AUREA/TIMOTHYDD: 01/07/2020 22:58:31 PATIENT NAME: STEPHANIE BLEVINSE Conf#: [id number]/DID#: [id number] Authenticated and Edited by Kathi Rodriguez MD On 01/24/20 5:30:22 PM at 1737 PATIENT NAME: JULIET BLEVINS [id number]:58:00L.[id number] lable for patient scyiDFGKFTQEGCOPKU1146-18-68J00:37:33 [facility] 2020-01-07 14:42:00 [id number] pL2r7mq9PIL5fDPC+IkTb8C+wGEEC DPAtGRdYyYfMcUcF+DJWnjWlq3SxSdumOc5085-88-14B41:4 2:00 [facility] ([facility])Brief Op NoteREPORT#:[id number] REPORT STATUS: SignedDATE:01/07/20 TIME:1442 PATIENT: JULIET BLEVINS UNIT #: [id number]#: [id number] ROOM/BED:: 73 AGE: 44 SEX: F ATTEND: Kathi Rodriguez [facility] AUTHOR: Kathi Rodriguez MD * ALL edits or amendments must be made on the electronic/computer document * Op/Inv Proc Note - BriefPre-procedure diagnosis:AUB-L/A, Dysmenorrhea, Essure coilsPost-procedure diagnosis: same as pre procedure dxProcedures performed:TLVeronica BS, CystoPrimary Surgeon:Jennifer Aerospace Mechanic(s): Natalie Brown FAAnesthesia: general anesthesiaFindings:coils in tubes, normal ovaries, minimal endometriosis on serosa of uterusComplications: noneEstimated blood loss in ml's: noneSpecimens removed/altered: uterus tubes bilateral with coilsDrain(s): NoneApproach: laparoscopicDisposition: stable at 1449 RPT #: [id number] OF REPORT OPOperative [id number]:42:00L.[id number] ilable for patient sfbjETKXLFQSGAXMLY8583-72-54G66:50:07 [facility] 2020-01-04 10:47:00 [id number]/ BVayQ5b6D3YMjuoSA2wBACAK9S8fP /jxUxcBVSd39pi7jFW1XMFMzZOMoggsas20200-77-85U21:4 [id number] [facility] [id number] [place] [id number] PATIENT NAME: JULIET BLEVINS ADMIT DATE: ACCOUNT NO: [id number] ROOM NO: AGE: 44 REPORT TYPE: eELECTROCARDIOGRAM SEX: F ADMITTING PHYSICIAN: ATTENDING PHYSICIAN: Kathi Rodriguez MD Order:[id number] Reason : PREOP Test Date/Time Stamp:SatJan 04 2020 10:47:26Blood Pressure : / mmHGVent. Rate : 082 BPM Atrial Rate : 082 BPM P-R Int : 112 ms QRS Dur : 074 ms QT Int : 358 ms P-R-T Axes : 023 007 020 degrees QTc Int : 418 ms Normal sinus rhythmNormal ECGNo previous ECGs availableConfirmed by LAZARA MCINTOSH, ROLDAN ([id number]) on 01/06/2020 8:12:06 PM Referred By: Kathi Rodriguez Confirmed by:ROLDAN HAILE MD at 2011 PATIENT NAME: JULIET BLEVINS .[id number] AVAvailable for patient [id number]:12:21 [facility]
--- NOTE | 2023-05-31 17:01 | EDPHYS ---
Physician Documentation [facility] Name: Marissa Blevins Age: 47 yrs Sex: Female : 1975 Arrival Date: 05/31/2023 Time: 15:48 Bed 11 Private MD: ED Physician Dean Kingston HPI: 05/30 17:09 This 47 yrs old Female presents to ER via Ambulatory with complaints of Sore kb Throat, Fever, Ear Pain. 17:09 Pt is a 47 year old female who presents for chills, fever, bodyaches, sore throat, ear kb pain, cough and congestion that started yesterday and has gotten worse. Denies n/v/d. 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 - Social history:: Smoking status: Patient denies any tobacco usage or history of. ROS: 17:08 Constitutional: As per HPI kb Exam: 17:08 Constitutional: This is a well developed, well nourished patient who is awake, alert, kb and in no acute distress. Head/Face: Normocephalic, atraumatic. ENT: Moist Mucous membranes Cardiovascular: Regular rate Respiratory: Respirations even and unlabored. No increased work of breathing. Talking in full sentences Abdomen/GI: Soft, non-tender. No distention Skin: Warm, dry with normal turgor. Normal color. MS/ Extremity: Pulses equal, no cyanosis. Neurovascular intact. Full, normal range of motion. Neuro: Awake and alert, GCS 15, oriented to person, place, time, and situation. Moves all extremities. Normal gait. Vital Signs: 15:53 BP 131 / 83; Pulse 122; Resp 18; Temp 99.9; Pulse Ox 98% on R/A; Weight 69.85 kg; iw Height 4 ft. 11 in. ; Pain 8/10; 17:02 BP 124 / 78; Pulse 98; Resp 14; Temp 98.1; Pulse Ox 97% ; ko1 15:53 Body Mass Index 31.10 (69.85 kg, 149.86 cm) iw 15:53 Pain Scale: Adult iw MDM: 15:53 Patient medically screened. kb 17:09 Differential diagnosis: flu, covid, uri. Data reviewed: vital signs, nurses notes. Test kb considered but Not performed: X-ray: chest x-ray considered, but lungs clear bilaterally, resp even and unlabored. Counseling: I had a detailed discussion with the patient and/or guardian regarding the historical points, exam findings, and any diagnostic results supporting the discharge/admit diagnosis, lab results, the need for outpatient follow up, a family practitioner, to return to the emergency department if symptoms worsen or persist or if there are any questions or concerns that arise at home. 05/30 15:59 Order name: Flu; Complete Time: 16:39 kb 05/30 15:59 Order name: COVID-19 SARS RT PCR; Complete Time: 17:00 kb 05/30 15:59 Order name: Strep kb 05/30 16:28 Order name: Throat Culture [facility] 05/30 17:01 Order name: Vital Signs; Complete Time: 17:11 kb Administered Medications: 16:09 Drug: Ibuprofen PO 600 mg PO once Route: PO; ko1 17:00 Follow up: Response: No adverse reaction; Temperature is decreased ko1 Disposition Summary: 05/31/23 17:01 Discharge Ordered Notes: Location: Home kb Condition: Stable kb Diagnosis - Influenza due to identified novel influenza A virus - B kb Followup: kb - With: Emergency Department - When: As needed - Reason: Worsening of condition Followup: kb - With: Private Physician - When: 2 - 3 days - Reason: Recheck today's complaints, Continuance of care, Re-evaluation by your physician Discharge Instructions: - Discharge Summary Sheet kb - Influenza, Adult, Nvga-us-Gnyw kb Forms: - Medication Reconciliation Form kb - Thank You Letter kb - Antibiotic Education kb - Prescription Opioid Use kb - Patient Portal Instructions kb - Leadership Thank You Letter kb Prescriptions: - Tamiflu 75 mg Oral capsule - take 1 tablet ORAL route every 12 hours for 5 days; 10 tablet; Refills: 0, kb Product Selection Permitted Signatures: Dispatcher [employer] [facility] Carie Colón, ROLANDO-Emiliano MARSHALL-Evita Mijares RN RN iw Oliver, Kathy, RN RN ko1 Corrections: (The following items were deleted from the chart) 15:55 15:55 PSHx: None; jacky rico
--- NOTE | 2023-05-31 17:01 | ER ---
Nurse's Notes [facility] Name: Marissa Blevins Age: 47 yrs Sex: Female : 1975 Arrival Date: 05/31/2023 Time: 15:48 Bed 11 Private MD: Diagnosis: Influenza due to identified novel influenza A virus-B Presentation: 05/30 15:53 Chief complaint: Patient states: cough, sore throat, fever, left ear pain, symptoms iw since yesterday morning. Coronavirus screen: Client presents with at least one sign or symptom that may indicate coronavirus-19. Ebola Screen: No symptoms or risks identified at this time. Risk Assessment: Do you want to hurt yourself or someone else? Patient reports no desire to harm self or others. Onset of symptoms was May 30, 2023. 15:53 Method Of Arrival: Ambulatory iw 15:53 Acuity: ABUNDIO 4 iw 15:56 Initial Sepsis Screen: Does the patient meet any 2 criteria? HR > 90 bpm. Does the iw patient have a suspected source of infection?. 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 - Social history:: Smoking status: Patient denies any tobacco usage or history of. Screenin:05 [facility] ED Fall Risk Assessment (Adult) History of falling in the last 3 months, ko1 including since admission No falls in past 3 months (0 pts) Confusion or Disorientation No (0 pts) Intoxicated or Sedated No (0 pts) Impaired Gait No (0 pts) Mobility Assist Device Used No (0 pt) Altered Elimination No (0 pt) Score/Fall Risk Level 0 - 2 = Low Risk Oriented to surroundings, Maintained a safe environment, Educated pt \T\ family on fall prevention, incl call for assistance when getting out of bed, Assessed \T\ reinforced patient's understanding of fall precautions, Provided non-skid footwear, Hourly rounding (assess needs \T\ fall precautionary measures) done, Used ambulatory aids as needed (educated on \T\ assisted with), Used gait belt as appropriate. Abuse screen: Denies threats or abuse. Denies injuries from another. Nutritional screening: No deficits noted. Tuberculosis screening: No symptoms or risk factors identified. Assessment: 16:05 General: Appears in no apparent distress. ill, Behavior is calm, cooperative, ko1 appropriate for age. Pain: Complains of pain in ear and throat pain. Neuro: No deficits noted. Cardiovascular: No deficits noted. Respiratory: Airway is patent Respiratory effort is even, unlabored, Breath sounds are clear bilaterally. GI: No deficits noted. : No deficits noted. EENT: Throat is pink. Derm: No deficits noted. Musculoskeletal: No deficits noted. Vital Signs: 15:53 BP 131 / 83; Pulse 122; Resp 18; Temp 99.9; Pulse Ox 98% on R/A; Weight 69.85 kg; iw Height 4 ft. 11 in. ; Pain 8/10; 17:02 BP 124 / 78; Pulse 98; Resp 14; Temp 98.1; Pulse Ox 97% ; ko1 15:53 Body Mass Index 31.10 (69.85 kg, 149.86 cm) iw 15:53 Pain Scale: Adult iw ED Course: 15:51 Patient arrived in ED. mr 15:53 Carie Colón, RILEY [facility] kb 15:53 Dean Kingston MD is Attending Physician. kb 15:55 Triage completed. iw 15:55 Arm band placed on. iw 16:01 Magdalena Flower, RN is Primary Nurse. ko1 16:05 Patient has correct armband on for positive identification. Bed in low position. Call ko1 light in reach. Side rails up X 1. Provided Education on: na. Pulse ox on. NIBP on. Door closed. Noise minimized. Lights dimmed. 16:05 No provider procedures requiring assistance completed. Patient did not have IV access ko1 during this emergency room visit. 16:09 COVID-19 SARS RT PCR Sent. ko1 16:09 Strep Sent. ko1 16:09 Flu Sent. ko1 Administered Medications: 16:09 Drug: Ibuprofen PO 600 mg PO once Route: PO; ko1 17:00 Follow up: Response: No adverse reaction; Temperature is decreased ko1 Medication: 16:05 VIS not applicable for this client. ko1 Outcome: 17:01 Discharge ordered by . sofiya 17:05 Discharged to home ambulatory, ko1 17:05 Condition: stable 17:05 Discharge instructions given to patient, Instructed on discharge instructions, follow up and referral plans. medication usage, Demonstrated understanding of instructions, follow-up care, medications, Prescriptions given X 1, 17:10 Patient left the ED. ko1 Signatures: Carie Colón, ACCT EXEC-C ACCT EXEC-Ckb Nadine Gaitan, Reg Reg mr Evita Mahoney RN RN Magdalena Reyna, SILVIA RN ko1 Corrections: (The following items were deleted from the chart) 15:55 15:55 PSHx: None; iw iw
[2023-05-31 18:03] VITALS: BP 124/78; TEMP 98.1; O2SAT 97
== END ==
LOC: ER 15:48
DX: J10.1 Influenza due to other identified influenza virus with other respiratory manifestations (principal); Z11.52 Encounter for screening for COVID-19
CPT/HCPCS: 87070; 87081; 87635; 87804; 99284